=== PATIENT | female | born 1950 | race Caucasian/White ===

== ENCOUNTER 2017-09-02 13:37 | Inpatient (IN) | payer MEDICARE ==
[2017-09-02 14:00] LABS: #Basophils 0.1 thou/uL (0.0-0.2); #Lymphocytes 0.9 thou/uL (1.20-3.40); #Monocytes 0.5 thou/uL (0.11-0.59); #Neutrophils 9.5 thou/uL (1.40-6.50); %Basophils 0.6 % (0.0-1.0); %Eosinophils 0.2 % (0.0-10.0); %Lymphocytes 7.9 % (21.0-51.0); %Monocytes 4.5 % (0.0-10.0); Bilirubin Negative (Negative); Blood, Urine Trace (Negative); Glucose, Urine (Dipstick) 250 mg/dL (Negative); Hematocrit 40.8 % (36.0-47.0); Ketone, Urine Trace mg/dL (Negative); Mean Platelet Volume 7.2 fL (7.4-10.4); Nitrite Negative (Negative); Protein, Urine (Dipstick) Trace mg/dL (Neg-Trace); Red Blood Cell (RBC) Count 4.27 mill/uL (4.20-5.40); Urobilinogen 0.2 mg/dL (0.2-1.0); White Blood Cell (WBC) Count 10.9 thou/uL (4.8-10.8)
[2017-09-02 14:02] LABS: Oxyhemoglobin 97.5 % (94.0-97.0); Sodium 139 mmol/L (135-148)
[2017-09-02 14:02] LABS: Bacteria/HPF None Seen HPF (None Seen); Hyaline Casts/LPF 0-3 HYALINE CAST LPF (0-3 Hyaline); RBC/HPF 0-3 HPF (0-3); Squamous Epithelial 0-3 HPF (0-3); WBC/HPF 21-50 HPF (0-3)
[2017-09-02 14:03] LABS: Mechanical Tidal Volume 400 ml; Modified Allen's Test POSITIVE; Vent YES
[2017-09-02 14:04] LABS: Mode TRANSPORT VENT
[2017-09-02 14:14] LABS: Lactic Acid - Sepsis 2.8 mmol/L (0.5-2.2)
[2017-09-02 14:17] LABS: ALT (SGPT) 16 U/L (8-55); AST (SGOT) 26 U/L (5-34); Alkaline Phosphatase 80 U/L (40-150); Anion Gap 13 mmol/L (10-20); BUN (Urea Nitrogen) 23 mg/dL (9.8-20.1); Bilirubin, Total 0.4 mg/dL (0.2-1.2); Calc. Creatinine Clearance 0 mL/min (70-130); Calcium 8.4 mg/dL (7.8-10.44); Carbon Dioxide 20 mmol/L (23-31); Chloride 106 mmol/L (98-107); Estimated GFR-MDRD 61; Globulin 2.8 g/dL (2.4-3.5); Protein, Total 6.3 g/dL (6.0-8.3)
[2017-09-02] MEDS ORDERED: PHENYLEPHRINE-NS 100 MCG/ML 10 ML SYRINGE ONE (14:19)
[2017-09-02] MEDS ORDERED: Vecuronium 10 MG VIAL ONE (14:19)
--- NOTE | 2017-09-02 14:20 | RAD ---
PORTABLE CHEST: Date: 09/02/17 Supine projection. HISTORY: Cough. Intubation. FINDINGS: ET tube is in place with tip above dontae. NG tube is in place, tip not visualized. There is elevation of the left hemidiaphragm, which is a new finding when compared to prior study of 12/01/12. The lungs appear clear of infiltrate. No evidence of vascular congestion. Flattening of the right hemidiaphragm is a stable finding. IMPRESSION: 1. ET tube and NG tube noted. 2. Elevated left hemidiaphragm is new when compared to prior exam. POS: [facility]
[2017-09-02 14:21] LABS: Amphetamine Detected (NotDetected); Methadone Not Detected (NotDetected); Methamphetamine Detected (NotDetected)
[2017-09-02] MEDS ORDERED: Propofol 1,000 MG/100 ML VIAL IV ONE ×2 (14:45→17:46)
[2017-09-02 14:47] LABS: Acetaminophen Less than 6.0 mcg/mL (10.0-30.0); CK (CPK) 86 U/L (29-168); Lipase 15 U/L (8-78); Salicylate Less than 8.0 mg/dL (15.0-30.0)
[2017-09-02 14:50] LABS: Troponin I Less than 0.010 ng/mL (< 0.028)
[2017-09-02] MEDS ORDERED: NS 0.9% w/ 20 MEQ KCL 1,000 ML IV SCH (15:00)
[2017-09-02 15:16] LABS: PTT 32.2 SEC (22.9-36.1)
[2017-09-02] MEDS ORDERED: manNITOL 20% 500 ML ONE (15:19)
[2017-09-02 15:20] LABS: Prothrombin Time 12.9 SEC (12.0-14.7)
--- NOTE | 2017-09-02 15:27 | CT ---
CT HEAD WITHOUT CONTRAST: Date: 09/02/17 Multiple axial tomograms obtained through the head without IV enhancement. HISTORY: Found unresponsive. FINDINGS: There is a large intraparenchymal hematoma involving the posterior fossa. This is located predominant ly in the midline and measures approximately 5.0 x 6.0 cm. There is surrounding edema. There is some intraventricular extension of hemorrhage. There is associated hydrocephalus involving the lateral and third ventricles. Effacement of the basilar cisterns due to the mass effect. IMPRESSION: Large intraparenchymal hemorrhage involving the midline of the posterior fossa with secondary hydroce phalus and intraventricular extension of hemorrhage. Findings relayed to Dr. Dominguez. CODE CR. POS: [facility]
[2017-09-02] MEDS ORDERED: Bacitracin Zinc Ointment 30 gm TUBE ONE (15:28)
[2017-09-02] MEDS ORDERED: Piperacillin/Tazobactam 3.375 GM in Sodium Chloride 0.9% 100 ML IVPB SCH (15:30)
--- NOTE | 2017-09-02 15:41 | CT ---
CT CERVICAL SPINE WITHOUT IV CONTRAST: Date: 09-02-17 History: Unresponsive. Technique: Contiguous axial CT images are obtained through the cervical spine from the skull base to the T4-5 level. Sagittal and coronal reformatted images are provided. FINDINGS: There is no evidence of a fracture or subluxation involving the cervical spine. There is incomplete i maging or visualization of a wedge shaped compression fracture involving the T5 vertebral body, but t his was seen on a prior chest x-ray on 12-01-12. Prevertebral soft tissues are within normal limits. Vascular calcifications seen in the aortic arch. There is partial visualization of a large area of hemorrhage in the posterior fossa and extending int o the fourth ventricle. This is better visualized on CT of the head also obtained on this date. There are emphysematous changes seen within the upper lobes bilaterally with what is thought to be pl eural and parenchymal scarring at the medial aspect of each lung apex. Endotracheal tube is noted in place which terminates at the C4-5 level, above the level of the dontae . Just distal to the endotracheal tube, there is an essentric increased density focus seen within the trachea, probably related to a small amount of debris or secretions. Nasogastric tube is noted in place. IMPRESSION: 1. No fracture or subluxation involving the cervical spine. 2. Incomplete visualization of a prominent wedge shaped compression fracture involving the T5 vertebr al body, also seen on a prior study in 2012. 3. Endotracheal tube and nasogastric tubes in place. 4. Large hemorrhage in the posterior fossa. This was better imaged and evaluated on CT of the head, a lso obtained on this date. POS: [facility]
[2017-09-02] MEDS ORDERED: Midazolam HCl 2 mg/2 ml Vial ONE ×2 (15:42→17:16)
[2017-09-02] MEDS ORDERED: Fentanyl 250 MCG/5 ML VIAL ONE (15:42)
[2017-09-02] MEDS ORDERED: Fentanyl 100 MCG/2 ML VIAL ONE ×2 (15:42→16:38)
[2017-09-02] MEDS ORDERED: Acetaminophen 325 MG TAB PO PRN (18:16)
[2017-09-02 18:20] LABS: Oxyhemoglobin 97.2 % (94.0-97.0); Sodium 132 mmol/L (135-148)
[2017-09-02] MEDS ORDERED: Morphine 4 MG/ML VIAL SLOW IVP PRN ×2 (18:21→18:22)
[2017-09-02] MEDS ORDERED: Ondansetron HCl/PF 4 MG/2 ML Vial IVP PRN (18:22)
[2017-09-02 18:24] LABS: Mechanical Tidal Volume 325 ml; Vent YES
[2017-09-02 18:25] LABS: Mode SIMV; Pressure Support 10 cmH2O
[2017-09-02] MEDS: Sodium Chloride 0.9% 1,000 ML IV SCH (18:43)
[2017-09-02] MEDS: niCARdipine HCl 25 MG in Sodium Chloride 0.9% 250 ML 240 ML IVPB SCH ×2 (18:44→21:44)
--- NOTE | 2017-09-02 19:28 | CON ---
DATE OF CONSULTATION: 09/02/2017 Ms. Ramirez is a 67-year-old woman with hypertension, but otherwise in reasonably good health who was fo und unresponsive at home by her . Upon initial evaluation by EMS, she was reported to be movi ng all four extremities with a poor level of consciousness. Ultimately, she was intubated and sedate d. Her current exam involved moving all 4 extremities in a meaningful way at least with withdrawal. Pupils are currently pinpoint. She is overbreathing the ventilator. CT scan reveals a large cerebellar hematoma which seems to have origin of the midline near the fourth ventricle extending into both cerebellar hemispheres, left greater than right. IMPRESSION AND PLAN: The patient has a very large cerebellar hematoma causing severe mass effect and coma. Her overall prognosis is poor. Nevertheless, given the reasonably good health and young age as well as the persistent neurologic function, I recommend urgent clot evacuation and decompression a s well as ventriculostomy. I did express to her the overall poor prognosis even with surgery and he expressed understanding.
--- NOTE | 2017-09-02 20:42 | HP ---
HISTORY OF PRESENT ILLNESS: The patient is a 67-year-old female with a past medical history of hypertension, noncompliant on her medications, who was found down by her just prior to arrival to the ER. reports last seen normal 3 hours before when he left the house to get her a birthday card. It is unknown how long the patient had been down. Upon his arrival, he found her slumped over near the front door and she was not able to speak, not opening her eyes, but was moving her extremities. He called EMS who on arrival intubated the patient for protection of her airway. CT head was done upon arrival to the emergency department, which revealed large cerebellar intracranial hemorrhage and therefore, the Neurosurgery Service was consulted for further evaluation and management. PAST MEDICAL HISTORY: reports patient has a past medical history of hypertension, but she is noncompliant on her medication. SOCIAL HISTORY: History of opiate abuse. She does smoke cigarettes daily approximately 1/4 pack. Lives at home with her family. ALLERGIES: The patient has a PEANUT allergy. REVIEW OF SYSTEMS: Per HPI. PHYSICAL EXAMINATION: GENERAL: GCS is 6. The patient is not opening her eyes. No verbal response. She does withdraw to pain over all extremities. CONSTITUTIONAL: The patient is in significant distress. HEAD: Normocephalic, atraumatic. EYES: Pupils are pinpoint and nonreactive. ENT: The patient has a positive gag reflex. She is currently intubated. NECK: Trachea is midline. RESPIRATORY: She is being mechanically ventilated. Breath sounds are clear. CARDIOVASCULAR: Regular rate and rhythm. MUSCULOSKELETAL: The patient has symmetric pulses throughout all upper and lower extremities, no obvious deformities. NEUROLOGIC: The patient does have a GCS of 6, not open her eyes. She is nonverbal. She does withdraw to pain overall extremities. She has a positive gag reflex, no corneal reflexes appreciated. ASSESSMENT: Acute intracranial hemorrhage of the cerebellum. PLAN: The patient was given 100 grams of mannitol IV in the emergency department. She is also being hyperventilated. We will plan to take the patient to the OR for posterior fossa decompression. Following this, she will be admitted to the ICU for further management. EVD will also be placed intraoperatively. Dr. Ferrer is in the Emergency Department at this time in agreement with this plan. SETH
[2017-09-02] MEDS: Famotidine 20 MG TAB PO SCH (21:37)
[2017-09-02] MEDS: Famotidine/PF 20 mg/2ml Vial SLOW IVP SCH (21:44)
[2017-09-02] MEDS: CEFAZOLIN/Water 2 GM/20 ML SYRINGE SLOW IVP SCH (21:45)
[2017-09-03] MEDS: niCARdipine HCl 25 MG in Sodium Chloride 0.9% 250 ML 240 ML IVPB SCH (01:38)
--- NOTE | 2017-09-03 01:44 | OP ---
DATE OF PROCEDURE: 09/02/2017 SURGEON: Mehrdad Ferrer M.D. OPERATING SYSTEMS SPECIALIST: Francisco Javier Rod PA-C PROCEDURE PERFORMED: Right frontal ventriculostomy, suboccipital craniectomy, evacuation of cerebell ar hematoma. PROCEDURE IN DETAIL: The patient was brought into the operating room, having already been intubated. The right frontal region was shaved, prepped, and draped in sterile fashion and a twist drill perfo ration was made in a single pass. Brisk CSF flow was obtained through a ventriculostomy catheter thr ough the right frontal region. This was tunneled through a separate incision and secured with suture and connected to a drainage system. The patient was then placed in the thanh packager head and hunter d in the prone position on gel-filled chest rolls with the head fixed in a neutral position. A midli ne incision was made, exposing the suboccipital cranium down to C1. A standard suboccipital craniect luna was performed. The dura was then reflected. We made a corticotomy in the left cerebellar hemisp here extending to the midline vermis. Rlaph hematoma was identified and aspirated and a complete alejandro cuation of the hematoma was achieved. The brain seemed adequately decompressed. After immaculate he mostasis was secured, the wound was extensively irrigated. The dura was re-approximated using DuraGe n artificial dura. Vancomycin powder was applied and the wound was then closed in anatomic layers.
[2017-09-03] MEDS: Labetalol HCl 100 MG/20 ML VIAL SLOW IVP PRN (03:17)
[2017-09-03] MEDS: niCARdipine HCl 50 MG in Sodium Chloride 0.9% 250 ML 230 ML IVPB SCH ×5 (03:17→21:09)
--- NOTE | 2017-09-03 03:47 | CON ---
DATE OF CONSULTATION: 09/02/2017 SERVICE: Pulmonary Medicine. REASON FOR CONSULTATION: Respiratory failure. HISTORY OF PRESENT ILLNESS: The patient is a 67-year-old white female with past medical history sign ificant for hypertension. She presented to the hospital with acute onset of neurologic changes. In the emergency department, CT scan was done demonstrating some posterior fossa bleed. Because of her neurologic symptoms, she went for craniectomy. She is tucked into the ICU after this procedure. At this point, she is not requiring any sedation. Her blood pressures are under much better control. S he cannot provide any additional elements of the history. PHYSICAL EXAMINATION: VITAL SIGNS: Afebrile, pulse 79, blood pressure 153/96, respirations 12, saturation 100% on 31% FIO2 and a PEEP of 5. GENERAL: Patient is intubated. She is a little encephalopathic. HEENT: Normocephalic, status post craniectomy. Sclerae white. Conjunctivae pink. Oral and nasal m ucosa is moist without lesions. LUNGS: Decent air entry with no prolonged expiratory phase or wheezing. HEART: Normal rate, regular. ABDOMEN: Soft, nontender, nondistended. Bowel sounds positive. MUSCULOSKELETAL: No cyanosis or clubbing. No pitting in the bilateral lower extremities. NEUROLOGIC: Pupils are equal, round, and reactive. They go from 3 mm to 1 mm with light. Doll's ey es are normal. She is overbreathing the ventilator and demonstrates a good cough and gag. She seems to have some type of movement in the bilateral upper extremities with noxious stimuli. It is someth ing between withdrawal and posturing, though I favor the former. Additionally, she withdraws from he r left lower extremity. With noxious stimuli to her right lower extremity, she seems to have some so rt of a crossed extensor reflex. LABORATORY DATA: WBC 10.9, hemoglobin 13.7, platelets 190,000. PH 7.26, pCO2 of 49, pO2 of 150 on 4 0% FiO2 at that time. Potassium 2.9. Otherwise, basic metabolic profile, liver function studies are unremarkable. Lipase, troponins are unremarkable. CK is normal as ammonia. Urinalysis is essentia lly unremarkable except for mild glycosuria. Amphetamines are present in the urine drug screen. All other drugs are unremarkable. IMAGIN. CT of the brain demonstrates posterior fossa bleeding resulting in hydrocephalus and intraventric ular extension of the hemorrhage. 2. CT of the C-spine demonstrates no acute osseous abnormality or subluxation. Endotracheal tube an d nasogastric tube are both identified. 3. Chest x-ray demonstrates endotracheal tube at roughly 4 to 6 cm above the level of the dontae. E nteric catheter course as well below the level of the diaphragm. There is no acute cardiopulmonary a bnormality, but there is a high left-sided hemidiaphragm. ASSESSMENT: 1. Respiratory failure secondary to inability to protect airway. 2. Intraparenchymal hemorrhage of the posterior fossa with intraventricular extension, status post c raniectomy. 3. Hypokalemia. 4. Hypertension. 5. Amphetamine abuse, possible. PLAN: We will focus on keeping her systolic blood pressure below 140. We will continue to monitor a rterial line. Multiple adjustments have been made ventilator in order to improve comfort. Hopefully , her mentation will start to improve over the next 24-48 hours. If it does, extubation will be cons idered. I will replace the potassium. CRITICAL CARE TIME: 30 minutes. PAST MEDICAL HISTORY: Hypertension. PAST SURGICAL HISTORY: Unknown. SOCIAL HISTORY: She has a history of opiate abuse. The patient's is not aware of any amphet amine use. She smokes 1/4 pack of cigarettes on a daily basis, but has a [id number] history of smo natalie prior to that. Negative for alcohol abuse. ALLERGIES: PEANUTS. MEDICATIONS: List of her inpatient medications were reviewed. A couple of small updates were made. FAMILY HISTORY: Noncontributory. REVIEW OF SYSTEMS: Cannot be obtained because the patient is encephalopathic.
[2017-09-03] MEDS: CEFAZOLIN/Water 2 GM/20 ML SYRINGE SLOW IVP SCH ×3 (05:10→21:07)
[2017-09-03] MEDS ORDERED: Propofol 1,000 MG/100 ML VIAL IV PRN (07:05)
[2017-09-03] MEDS: Famotidine 20 MG TAB PO SCH ×2 (07:22→21:10)
[2017-09-03] MEDS: Sodium Chloride 0.9% 1,000 ML IV SCH ×2 (07:25→21:08)
[2017-09-03] MEDS: Famotidine/PF 20 mg/2ml Vial SLOW IVP SCH ×2 (07:25→21:07)
--- NOTE | 2017-09-03 09:03 | CT ---
CT HEAD WITHOUT CONTRAST: Date: 09/03/17 Multiple axial tomograms obtained through the head without IV enhancement. HISTORY: Postop follow-up intracranial hemorrhage. Comparison made to yesterday's exam of 09/02/17. FINDINGS: Postop changes in the posterior fossa now noted. The posterior fossa hematoma has been evacuated. Pne umocephalus is seen. There continues to be some dense blood product in the posterior fossa, although the size of the hematoma is much less. Fourth ventricle is now identified. Some intraventricular bloo d again noted. A shunt catheter has been placed via the right frontal lobe and the tip overlies the r ight lateral ventricle. Ventricular size appears slightly decreased from yesterday. IMPRESSION: Postoperative changes are now noted. Some residual hematoma in the posterior fossa is seen, although the size of the intraparenchymal hematoma is much less after surgical evacuation. POS: [facility]
[2017-09-03] MEDS: hydrALAZINE 20 MG/ML VIAL SLOW IVP PRN (13:43)
--- NOTE | 2017-09-03 15:33 | PRG ---
DATE OF SERVICE: 09/03/2017 SERVICE: Pulmonary Medicine. INTERVAL HISTORY: The patient is doing fine from a respiratory standpoint. Mentation kirby, she is improving slightly. Otherwise, there has been no interval change to her condition. She certainly is not able to protect her airway at this point. We are holding all sedation as tolerated. PHYSICAL EXAMINATION: VITAL SIGNS: T-max of 100.2, pulse 74, blood pressure 140/54, respirations 23, saturation 100% on 31% FiO2 and PEEP of 5. HEENT: Normocephalic, atraumatic. Sclerae are white, conjunctivae pink. Oral and nasal mucosa is moist without lesions. LUNGS: Decent air entry. There is no prolonged expiratory phase, wheezing, rhonchi, or crackles. HEART: Normal rate, regular. ABDOMEN: Soft, nontender, nondistended. Bowel sounds positive. MUSCULOSKELETAL: No cyanosis or clubbing. No pitting in the bilateral lower extremities. NEUROLOGIC: She spontaneously opens her eyes. She does not attend yet. She is withdrawing from noxious stimuli in all 4 extremities. Pupils are equal, round, and reactive. She is over-breathing the ventilator and has a good cough and gag. LABORATORY DATA: Potassium 2.9. Cardiac enzymes are negative x1. CK falls within normal limits and lipase is normal. Blood cultures x2 are unremarkable. IMAGING: CT of the brain demonstrates residual hematoma in the posterior fossa. The size of the intraparenchymal hematoma is much improved after surgical evacuation. ASSESSMENT: 1. Respiratory failure secondary to inability to protect airway. 2. Intraparenchymal hemorrhage of the posterior fossa with intraventricular extension, status post craniectomy. 3. Hypokalemia, improving. 4. Amphetamine abuse, possible. PLAN: We will continue supportive care for the patient. Repeat laboratories will be done tomorrow morning. Small adjustments have been made to the ventilator in order to improve on . Critical Care will continue to follow. In 24 hours, if she cannot be extubated, tube feeds will be initiated. Critical care time: 30 minutes. MTDD
[2017-09-04] MEDS: Labetalol HCl 100 MG/20 ML VIAL SLOW IVP PRN (00:21)
[2017-09-04 04:28] LABS: Anion Gap 11 mmol/L (10-20); BUN (Urea Nitrogen) 15 mg/dL (9.8-20.1); Calc. Creatinine Clearance 45 mL/min (70-130); Calcium 8.3 mg/dL (7.8-10.44); Carbon Dioxide 18 mmol/L (23-31); Chloride 114 mmol/L (98-107); Estimated GFR-MDRD 59; Magnesium 1.6 mg/dL (1.6-2.6); Phosphorus 2.9 mg/dL (2.3-4.7)
[2017-09-04 04:37] LABS: Band 4 % (5-11); Hematocrit 33.4 % (36.0-47.0); Mean Platelet Volume 7.8 fL (7.4-10.4); Neutrophil 85 % (42-75); Red Blood Cell (RBC) Count 3.51 mill/uL (4.20-5.40); White Blood Cell (WBC) Count 19.6 thou/uL (4.8-10.8)
[2017-09-04] MEDS: CEFAZOLIN/Water 2 GM/20 ML SYRINGE SLOW IVP SCH ×3 (05:10→21:22)
[2017-09-04] MEDS: niCARdipine HCl 50 MG in Sodium Chloride 0.9% 250 ML 230 ML IVPB SCH ×3 (05:12→09:08)
[2017-09-04] MEDS: Sodium Chloride 0.9% 1,000 ML IV SCH (09:07)
[2017-09-04] MEDS: Famotidine 20 MG TAB PO SCH ×2 (09:08→20:07)
[2017-09-04] MEDS: Famotidine/PF 20 mg/2ml Vial SLOW IVP SCH ×2 (09:09→20:08)
[2017-09-04] MEDS: cloNIDine 0.1 MG TAB PO PRN (14:38)
[2017-09-04] MEDS ORDERED: Lacri-Lube Opth Oint 3.5 GM TUBE EA EYE PRN (15:22)
[2017-09-04] MEDS ORDERED: Magnesium 2 GM/NS 0.9% 100 ML 2 GM in Premix Bag 1 BAG IVPB SCH (15:30)
[2017-09-04] MEDS ORDERED: predniSONE 20 MG TAB PO SCH (15:30)
--- NOTE | 2017-09-04 15:50 | PRG ---
DATE OF SERVICE: 09/04/2017 SERVICE: Pulmonary Medicine. INTERVAL HISTORY: The patient is doing great from a respiratory standpoint. Overnight, started foll owing some simple commands. She does not have any specific complaints presently. That being said, h er mentation is only marginally improved and she remains fairly encephalopathic. Without stimulation on no sedation, she drifts off back to sleep within 3 seconds. PHYSICAL EXAMINATION: VITAL SIGNS: T-max 100.5. Pulse 80, blood pressure 127/52, respirations 23, and saturation 93% on r oom air. GENERAL: The patient is intubated. She is encephalopathic and following some simple commands with h eavy stimulation. HEENT: Normocephalic. Sclerae are white, conjunctivae pink. Oral and nasal mucosa is moist without lesions. LUNGS: Decent air entry. Rhonchi and wheezing are both present. HEART: Normal rate, regular. ABDOMEN: Soft, nontender, nondistended. Bowel sounds are positive. MUSCULOSKELETAL: No cyanosis or clubbing. There is no pitting in the bilateral lower extremities. NEUROLOGIC: Grossly nonfocal. LABORATORY DATA: WBC is trending upward to 19.6, hemoglobin 11.4. Platelets are 206,000. Neutrophi l count is increasing to 85%. INR 1.0. Potassium 3.2, chloride 114, bicarbonate 18. Basic metaboli c profile is otherwise unremarkable. Magnesium and phosphorus fall within the normal limits. Tropon in is below the assay limits of normal. Blood culture x2, urine culture negative to date. IMAGING: CT of the brain demonstrates postoperative changes are stable. Some residual hematoma in t he posterior fossa seen. The size of the intraparenchymal hematoma is much less after the evacuation . ASSESSMENT: 1. Respiratory failure secondary to inability to protect airway. 2. Sepsis. 3. Intraparenchymal hemorrhage of the posterior fossa with intraventricular extension, status post c raniectomy. 4. Hypokalemia. 5. Amphetamine abuse. PLAN: We are going to look for source of infection empirically initiate antibiotics for the time carmel francisco. I will repeat a chest x-ray tomorrow morning. I have changed her to pressure support ventilatio n at 10/5. Propofol will be discontinued altogether. She will need to be placed back on mechanical ventilation if we introduce any sedating medications. We are going to initiate tube feeds and start nebulized medications as well as p.o. prednisone and she does have significant wheezing. I will cont inue to follow. Potassium and magnesium will be replaced today. Critical care time: 30 minutes.
[2017-09-04] MEDS: Lactated Ringer's 1,000 ML IV SCH (16:13)
[2017-09-04] MEDS: Piperacillin/Tazobactam 3.375 GM in Sodium Chloride 0.9% 100 ML IVPB SCH (17:39)
[2017-09-05] MEDS: Piperacillin/Tazobactam 3.375 GM in Sodium Chloride 0.9% 100 ML IVPB SCH ×5 (00:10→23:35)
[2017-09-05] MEDS: Lactated Ringer's 1,000 ML IV SCH ×2 (00:10→14:52)
[2017-09-05] MEDS: CEFAZOLIN/Water 2 GM/20 ML SYRINGE SLOW IVP SCH ×3 (05:01→21:02)
[2017-09-05 05:07] LABS: Anion Gap 8 mmol/L (10-20); BUN (Urea Nitrogen) 25 mg/dL (9.8-20.1); Calc. Creatinine Clearance 46 mL/min (70-130); Calcium 8.6 mg/dL (7.8-10.44); Carbon Dioxide 21 mmol/L (23-31); Chloride 114 mmol/L (98-107); Estimated GFR-MDRD 56
[2017-09-05 05:19] LABS: Band 6 % (5-11); Hematocrit 31.1 % (36.0-47.0); Mean Platelet Volume 7.9 fL (7.4-10.4); Neutrophil 85 % (42-75); Red Blood Cell (RBC) Count 3.27 mill/uL (4.20-5.40)
[2017-09-05] MEDS: Famotidine 20 MG TAB PO SCH (07:34)
[2017-09-05] MEDS: predniSONE 20 MG TAB PO SCH (07:34)
[2017-09-05] MEDS: Famotidine/PF 20 mg/2ml Vial SLOW IVP SCH (07:35)
--- NOTE | 2017-09-05 08:09 | CT ---
PRELIMINARY REPORT/[facility]/EMERGENCY AFTER HOURS PROCEDURE: EXAM: CT Head Without Intravenous Contrast CLINICAL HISTORY: 67 years old, female; Hemorrhage; Prior surgery; F/u known bleed / ICH TECHNIQUE: Axial computed tomography images of the head/brain without intravenous contrast. COMPARISON: CT Brain WO Con 2017-09-03 08:24 FINDINGS: Brain: Compared to the prior examination dated 09/03/2017, no significant interval change in amount o f hemorrhage within the ventricular system or cerebellum. No new areas of hemorrhage are identified. No significant white matter disease. Ventricles: See above. Bones/joints: Prior occipital craniotomy. Compared to the prior examination dated 09/03/2017, interva l decrease in amount of intracranial postsurgical air. No acute fracture. Soft tissues: Unremarkable. Sinuses: Unremarkable as visualized. No acute sinusitis. Mastoid air cells: Unremarkable as visualized. No mastoid effusion. Tubes, lines and devices: Tip of intracranial catheter is located within the body of the right latera l ventricle. IMPRESSION: 1. Prior occipital craniotomy. Compared to the prior examination dated 09/03/2017, interval decrease in amount of intracranial postsurgical air. 2. Compared to the prior examination dated 09/03/2017, no significant interval change in amount of he morrhage within the ventricular system or cerebellum. No new areas of hemorrhage are identified. Thank you for allowing us to participate in the care of your patient. Dictated and Authenticated by: Aiden Vargas MD 09/05/2017 3:57 AM Central Time ([place] & [place]) FINAL REPORT HEAD CT WITHOUT CONTRAST: Date: 09/05/17 COMPARISON: 09/03/17. HISTORY: Re-evaluate intracranial hemorrhage and postoperative changes. FINDINGS: Imaged paranasal sinuses and mastoid air cells are well aerated. There is evidence of prior midline o ccipital craniectomy. There is intraventricular gas within the frontal horn of right lateral ventricl e and temporal horn of left lateral ventricle. There is pneumocephalus noted, with punctate foci of g as in the posterior fossa and anterior bilateral frontal lobes. The degree of pneumocephalus has decr eased since the prior exam. There is blood layering within the posterior horns of bilateral lateral ventricles, similar when comp ared to prior imaging. There is intraventricular blood within the third and fourth ventricle, grossly unchanged as well. There is a right frontal ventriculostomy, in stable position. There is mild prominence of the lateral ventricles, slightly improved since the prior exam. Hemorrhag e centered within the left cerebellar hemisphere measures up to 3.4 cm in transverse dimension, not s ignificantly changed. Mass effect on the fourth ventricle is stable. IMPRESSION: Stable postoperative changes with decreased amount of intracranial postsurgical gas. Intraventricular blood and intra-axial blood within the left cerebellar hemisphere does not appear significantly islas ged. POS: [facility]
--- NOTE | 2017-09-05 09:14 | RAD ---
CHEST 1 VIEW: Date: 09/05/17 HISTORY: Dyspnea. Fever. COMPARISON: 09/02/17. FINDINGS: Cardiac silhouette is magnified by projection. Pulmonary vasculature is upper limits of normal. Lungs remain hyperinflated. Bibasilar atelectasis has increased slightly. Tip of the endotracheal catheter is just above the level of the dontae. Nasogastric tube descends to the abdomen. pharmaceutical representative leads overlie the chest. IMPRESSION: Slight interval increase in bibasilar atelectasis. Otherwise stable radiographic appearance of the ch est. POS: [facility]
[2017-09-05] MEDS: cloNIDine 0.1 MG TAB PO PRN (13:05)
[2017-09-05] MEDS: Labetalol HCl 100 MG/20 ML VIAL SLOW IVP PRN (14:52)
[2017-09-05] MEDS ORDERED: Potassium Chloride 40 MEQ in Sodium Chloride 0.9% 250 ML 250 ML IVPB ONE (20:30)
--- NOTE | 2017-09-05 22:41 | PRG ---
DATE OF SERVICE: 09/05/2017 SERVICE: Pulmonary Medicine. INTERVAL HISTORY: The patient is doing fine from a cardiovascular and respiratory standpoint. She is breathing comfortably. Today, she is awake and alert. She is following all commands. She is moving her bilateral upper and lower extremities. She can lift her head up off the bed and demonstrates a fairly good cough, otherwise. She remains on mechanical ventilation. She has been off sedation basically continuously. PHYSICAL EXAMINATION: VITAL SIGNS: Afebrile with a T-max of 99.4 presently. Temperature profile has improved, otherwise. Heart rate 78, blood pressure 133/70, respirations 20, saturation 98% on 21% FIO2, and PEEP of 5. GENERAL: Patient is awake and alert. She is following all commands, in no apparent distress. HEENT: Normocephalic. Status post craniectomy. Sclerae are white, conjunctivae pink. Oral and nasal mucosa is moist without lesions. LUNGS: Decent air entry. There is no prolonged expiratory phase or wheezing. She has rhonchi that clear with cough. HEART: Normal rate, regular. ABDOMEN: Soft, nontender, nondistended. Bowel sounds positive. MUSCULOSKELETAL: No cyanosis or clubbing. There is trace to 1+ pitting in the bilateral upper and lower extremities. GENITOURINARY: Ivey catheter in place. NEUROLOGIC: She is moving all 4 extremities. She demonstrates fairly decent strength. Pupils are equal, round, and active. She has a very good cough. LABORATORY DATA: WBC 20.0 with a slightly increasing band count. Neutrophils are 91%. Hemoglobin 10.5, platelets 221,000. INR 1.0. Potassium 3.5. Bicarbonate and anion gap have returned to a normal range. Creatinine 1.0 and gently up trending. Glucose 155. Respiratory culture, blood culture x2, and urine culture are all negative to date. IMAGIN. Chest x-ray demonstrates slight interval increase in bibasilar atelectasis with otherwise stable radiographic appearance of the chest including line and endotracheal tube. 2. CT of the brain demonstrates interval improvement in the volume of air in the intracranial area. There is no significant change in the amount of blood in the posterior fossa. ASSESSMENT: 1. Respiratory failure secondary to inability to protect airway, improving. 2. Sepsis. 3. Intraparenchymal hemorrhage of the posterior fossa with intraventricular extension, status post craniectomy. 4. Hypokalemia, improving. 5. Amphetamine abuse, possible. PLAN: We will continue empiric antibiotics directed at lung pathology for the time being. We will put her on a spontaneous breathing trial of 02/07. If she meets criteria, and demonstrates a vigorous cough and that she could probably handle her secretions, extubation will be considered. We will have to focus on pulmonary toileting after an extubation. Potassium will be replaced once again. CRITICAL CARE TIME: 30 minutes. MTDD
[2017-09-05] MEDS: hydrALAZINE 20 MG/ML VIAL SLOW IVP PRN (23:35)
[2017-09-06] MEDS: Labetalol HCl 100 MG/20 ML VIAL SLOW IVP PRN ×3 (02:12→21:48)
[2017-09-06 06:13] LABS: Anion Gap 15 mmol/L (10-20); BUN (Urea Nitrogen) 21 mg/dL (9.8-20.1); Calc. Creatinine Clearance 54 mL/min (70-130); Calcium 9.2 mg/dL (7.8-10.44); Carbon Dioxide 19 mmol/L (23-31); Chloride 110 mmol/L (98-107); Estimated GFR-MDRD 67
[2017-09-06] MEDS: Piperacillin/Tazobactam 3.375 GM in Sodium Chloride 0.9% 100 ML IVPB SCH ×3 (06:19→17:28)
[2017-09-06] MEDS: CEFAZOLIN/Water 2 GM/20 ML SYRINGE SLOW IVP SCH (06:19)
[2017-09-06] MEDS: hydrALAZINE 20 MG/ML VIAL SLOW IVP PRN ×4 (06:29→23:08)
[2017-09-06 08:17] LABS: Hematocrit 34.7 % (36.0-47.0); Mean Platelet Volume 7.4 fL (7.4-10.4); Red Blood Cell (RBC) Count 3.66 mill/uL (4.20-5.40)
[2017-09-06 08:19] LABS: Neutrophil 90 % (42-75)
--- NOTE | 2017-09-06 10:52 | PRG ---
DATE OF SERVICE: 09/06/2017 SUBJECTIVE: Ms. Ramirez is doing well post-extubation. Her drains have been removed. PHYSICAL EXAMINATION: VITAL SIGNS: Heart rate is 85, blood pressure 144/88, respiratory rate in the 20s. GENERAL: She will take a deep breath to commands, for examination and will say yes and no, but other than that she is minimally verbal. LUNGS: Completely clear. HEART: Regular rhythm. ABDOMEN: Soft. She appears to be handling her secretions. LABORATORY DATA: White counts 19, hemoglobin is 11, platelets 269. Sodium 140, potassium 4.1, chlor ren 110, bicarbonate 19, anion gap is 11, BUN 21, creatinine 0.8. Cultures have been reviewed and ar e negative so far. IMPRESSION: 1. Status post mechanical ventilation for a brain hemorrhage 2. Street drug abuse. 3. Mild hyperchloremic acidosis. 4. Anemia with normal mean corpuscular volume, presumably secondary to blood loss, her hemoglobin wa s 13 on admission. PLAN: Continue supportive care.
[2017-09-06] MEDS: predniSONE 20 MG TAB PO SCH (14:15)
[2017-09-06] MEDS: Lactated Ringer's 1,000 ML IV SCH (14:15)
[2017-09-06] MEDS: Acetaminophen 650 MG Suppository PR PRN (21:36)
[2017-09-07] MEDS: Piperacillin/Tazobactam 3.375 GM in Sodium Chloride 0.9% 100 ML IVPB SCH ×5 (00:35→23:49)
[2017-09-07] MEDS: hydrALAZINE 20 MG/ML VIAL SLOW IVP PRN ×2 (03:22→04:40)
[2017-09-07 03:39] LABS: #Lymphocytes 1.3 thou/uL (1.20-3.40); #Monocytes 0.7 thou/uL (0.11-0.59); #Neutrophils 9.7 thou/uL (1.40-6.50); %Basophils 0.2 % (0.0-1.0); %Eosinophils 0.3 % (0.0-10.0); %Lymphocytes 10.7 % (21.0-51.0); %Monocytes 5.6 % (0.0-10.0); Hematocrit 35.5 % (36.0-47.0); Mean Platelet Volume 7.2 fL (7.4-10.4); Red Blood Cell (RBC) Count 3.74 mill/uL (4.20-5.40); White Blood Cell (WBC) Count 11.7 thou/uL (4.8-10.8)
[2017-09-07 03:58] LABS: Anion Gap 15 mmol/L (10-20); BUN (Urea Nitrogen) 21 mg/dL (9.8-20.1); Calc. Creatinine Clearance 56 mL/min (70-130); Calcium 9.1 mg/dL (7.8-10.44); Carbon Dioxide 24 mmol/L (23-31); Chloride 103 mmol/L (98-107); Estimated GFR-MDRD 70
[2017-09-07] MEDS: Lactated Ringer's 1,000 ML IV SCH (04:49)
[2017-09-07] MEDS: Acetaminophen 650 MG Suppository PR PRN (05:09)
[2017-09-07] MEDS: niCARdipine HCl 50 MG in Sodium Chloride 0.9% 250 ML 230 ML IVPB SCH (05:35)
[2017-09-07] MEDS: predniSONE 20 MG TAB PO SCH (12:19)
--- NOTE | 2017-09-07 12:39 | CON ---
DATE OF CONSULTATION: 09/07/2017 HISTORY OF PRESENT ILLNESS: Patient is a 67-year-old female, who was found down by a famil y member. She was evaluated and diagnosed with an acute intracranial hemorrhage of the cerebellum. PAST MEDICAL HISTORY: Significant for hypertension. PAST SURGICAL HISTORY: Includes right frontal ventriculostomy, suboccipital craniectomy, and evacuat ion of a cerebellar hematoma, hysterectomy. ALLERGIES: PEANUTS and TRAMADOL. HOME MEDICATIONS ON ADMISSION: Unknown. SOCIAL HISTORY/FAMILY HISTORY/REVIEW OF SYSTEMS: Unobtainable. PHYSICAL EXAMINATION: GENERAL: Shows an obtunded white female in no acute distress. VITAL SIGNS: Pulse is 96, blood pressure 155/81, respiratory rate 24, temperature is 97.7. HEENT: Significant for surgical changes in the frontal scalp. NECK: Supple. CHEST: Clear. CARDIOVASCULAR: Regular rate and rhythm. ABDOMEN: Soft, nontender, without organomegaly or masses. She has a well-healed surgical scar in th e lower abdomen. EXTREMITIES: Normal. LABORATORY: Shows a white blood cell count of 11.7, hemoglobin 11.9. Chemistries show a potassium o f 3.0 and BUN 21. ASSESSMENT: 1. Cerebellar intracranial hemorrhage. 2. Oropharyngeal dysphagia secondary to #1. RECOMMENDATIONS: EGD and PEG.
--- NOTE | 2017-09-07 12:52 | RAD ---
KUB: HISTORY: Dobbhoff tube placement. FINDINGS: A Dobbhoff feeding tube is seen. The tip of the tube is in the region of the 1st portion of the duod enum. IMPRESSION: Dobbhoff feeding tube in position. The tip is probably in the region of the 1st portion of the duode num. POS: [facility]
[2017-09-07] MEDS ORDERED: Propofol 200 MG/20 ML VIAL ONE (15:37)
[2017-09-07] MEDS ORDERED: Lidocaine 1% PF 5 ML VIAL ONE (15:37)
--- NOTE | 2017-09-07 16:51 | OP ---
PREOPERATIVE DIAGNOSIS: Oropharyngeal dysphagia. PROCEDURE: After informed consent was obtained, the patient was placed in the left lateral decubitus position. Anesthesia administered per the Anesthesia Department. Forward-viewing endoscope was ins erted into the esophagus under direct visualization with ease and passed to the second portion of the duodenum with ease. No mucosal abnormalities were noted other than duodenitis. Area was prepped an d draped in usual manner. Anesthesia was applied with 1% lidocaine without epinephrine. A needle wa s inserted through the abdominal wall on the first pass, a guide wire was passed, snared, and brought out of the mouth. The PEG tube was attached and brought through the abdominal wall after a small in cision was made. Reinsertion of the endoscope showed the PEG bumper to be in good position. ASSESSMENT: Successful percutaneous endoscopic gastrostomy. RECOMMENDATIONS: 1. Begin tube feedings in 8 hours.
--- NOTE | 2017-09-07 20:54 | PRG ---
DATE OF SERVICE: 09/07/2017 Ms. Ramirez is clinically unchanged. Dr. Ferrer saw her today and recommended placement of a PEG, I placed an order for a Dobbhoff tube but agree correction PEG tube will be necessary and beneficial. This has been done late this afternoo n. OBJECTIVE: LUNGS: Clear. HEART: Regular rhythm. ABDOMEN: Soft. IMPRESSION: Status post parenchymal brain hemorrhage. Electrolytes are stable. Her CBC is stable. Hemoglobin is 11.9. We will continue supportive care.
[2017-09-07] MEDS: cloNIDine 0.1 MG TAB PO PRN (23:49)
[2017-09-08 05:07] LABS: #Monocytes 0.5 thou/uL (0.11-0.59); #Neutrophils 7.9 thou/uL (1.40-6.50); %Basophils 0.1 % (0.0-1.0); %Eosinophils 0.2 % (0.0-10.0); %Lymphocytes 10.8 % (21.0-51.0); %Monocytes 5.5 % (0.0-10.0); Hematocrit 34.9 % (36.0-47.0); Mean Platelet Volume 7.8 fL (7.4-10.4); Red Blood Cell (RBC) Count 3.67 mill/uL (4.20-5.40); White Blood Cell (WBC) Count 9.4 thou/uL (4.8-10.8)
[2017-09-08 05:15] LABS: Anion Gap 15 mmol/L (10-20); BUN (Urea Nitrogen) 26 mg/dL (9.8-20.1); Calc. Creatinine Clearance 44 mL/min (70-130); Calcium 8.7 mg/dL (7.8-10.44); Carbon Dioxide 24 mmol/L (23-31); Chloride 104 mmol/L (98-107); Estimated GFR-MDRD 56
[2017-09-08] MEDS: Piperacillin/Tazobactam 3.375 GM in Sodium Chloride 0.9% 100 ML IVPB SCH ×4 (05:20→23:41)
[2017-09-08] MEDS: Lactated Ringer's 1,000 ML IV SCH (05:20)
[2017-09-08] MEDS: cloNIDine 0.1 MG TAB PO PRN ×2 (05:21→11:03)
[2017-09-08] MEDS ORDERED: Potassium Chloride 40 MEQ in Sodium Chloride 0.9% 250 ML 250 ML IVPB SCH ×2 (06:30→07:00)
[2017-09-08] MEDS: predniSONE 20 MG TAB PO SCH (08:58)
[2017-09-08] MEDS: Pantoprazole 40 MG VIAL IVP SCH (08:58)
[2017-09-08] MEDS ORDERED: Lactated Ringer's 1,000 ML IV SCH (11:54)
[2017-09-08] MEDS ORDERED: Milk Of Magnesia 30 ML UDCUP PO SCH (12:00)
[2017-09-08] MEDS: hydrALAZINE 20 MG/ML VIAL SLOW IVP PRN ×2 (12:21→16:12)
--- NOTE | 2017-09-08 12:21 | PRG ---
DATE OF SERVICE: 09/08/2017 SERVICE: Pulmonary Medicine. INTERVAL HISTORY: The patient is doing really quite well from a respiratory standpoint. Her mentation is actually coming along. She is moving all 4 extremities. She still has difficulty moving her right upper and lower extremity that requires a little bit more prompting. Otherwise, she looks a little bit uncomfortable today. She has yet to work with physical therapy. She has not had a bowel movement since being here. PHYSICAL EXAMINATION: VITAL SIGNS: Afebrile, pulse 74, blood pressure 188/102, respirations 15, saturation 99% on room air. GENERAL: The patient is awake and alert. She is in mild distress secondary to abdominal discomfort. HEENT: Normocephalic, atraumatic. Sclerae are white, conjunctivae pink. Oral mucosa is moist without lesions. LUNGS: Decent air entry. There is no prolonged expiratory phase, wheezing, rhonchi or crackles. HEART: Normal rate, regular. ABDOMEN: Soft. Bowel sounds are hypoactive. GENITOURINARY: Ivey catheter in place. LABORATORY DATA: WBC 9.4, hemoglobin 11.6, platelets 269,000. Potassium 2.6. Basic metabolic profile is otherwise unremarkable. Creatinine is trending upward gently to 1.0. Magnesium falls within the normal limits. Sputum is growing Moraxella catarrhalis. Blood cultures x2 and urine culture negative to date. ASSESSMENT: 1. Respiratory failure secondary to inability to protect airway, resolved. 2. Sepsis. 3. Intraparenchymal hemorrhage of the posterior fossa with intraventricular extension, status post craniectomy. 4. Hypokalemia, recurring. 5. Possible amphetamine abuse. PLAN: We will continue her antibiotics and nebulized medications. Physiotherapy will be continued. I will have Physical Therapy come by. We will give her bowel regimen, replace potassium and give her some blood pressure medications. Of note, Pulmonary will continue to follow while she remains in the ICU, but from my perspective, she is getting to the point where she can be considered for transition to the floor. SETH
--- NOTE | 2017-09-08 13:01 | PRG ---
DATE OF SERVICE: 09/08/2017 SUBJECTIVE: According to nursing personnel they are not having any problems with the PEG tube. OBJECTIVE: VITAL SIGNS: Pulse is 75, respiratory rate is 21, blood pressure 156/98, temperature is 97.8. CHEST: Clear. CARDIOVASCULAR: Regular rate and rhythm. ABDOMEN: Shows the PEG site to look good. There is no erythema or exudate. The bumper was adjusted and the pressure taken off the skin. LABORATORY DATA: Shows a white blood cell count 9.4, hemoglobin 11.6, hematocrit 34.9. Chemistries show potassium 2.6, BUN 26. ASSESSMENT: 1. Status post percutaneous endoscopic gastrostomy placement - no apparent complications. 2. Hypokalemia. 3. Intracranial hemorrhage. RECOMMENDATIONS: 1. Continue PEG tube feedings. 2. Call if any difficulty with the PEG tube.
[2017-09-08 14:39] VITALS: BMI 20.6
[2017-09-08] MEDS ORDERED: Senokot S 8.6-50 MG TAB PO SCH (21:00)
[2017-09-09] MEDS: cloNIDine 0.1 MG TAB PO PRN ×3 (02:07→16:13)
--- NOTE | 2017-09-09 02:57 | CON ---
DATE OF CONSULTATION: 09/08/2017 DATE OF INITIAL ADMISSION: 09/02/2017 PRIMARY CARE PHYSICIAN: Chu Eid PRIMARY SERVICE ATTENDING: Mehrdad Ferrer MD with Neurosurgical Service REASON FOR CONSULT: General medical management. HISTORY OF PRESENT ILLNESS: This is a 67-year-old female who initially presented on 2016 after being found down by her reportedly, last seen normal 3 hours prior to his leaving the home. The patient apparently had her birthday on 09/02/2015 at which point, the left to get her a gift or a birthday card. The returned home and found her down on the ground u nresponsive. The patient was not able to speak, open eyes, or moving any extremities, at which point , EMS personnel were notified, immediately upon arrival, intubating the patient for airway protection . The patient underwent initial emergency room evaluation with CT imaging showing a large hemorrhage in the cerebellar region with intraventricular extension. The patient underwent subsequent craniect luna with decompression of the hematoma with placement of an EVD. The patient was continually monitor ed in the critical care unit postoperatively on mechanical ventilation followed by Pulmonary Critical Care Service as well as the GI Service as patient was unable to pass her swallowing evaluation. The patient was subsequently extubated and evaluated by speech therapy and deemed unsafe for oral intake . The patient underwent PEG tube placement on 09/07/2017, initiated on Jevity tube feeds. History h as been obtained exclusively after review of electronic medical record reports, ER records as patient have expressive aphasia. PAST MEDICAL HISTORY: 1. Hypertension, poorly controlled due to noncompliance. 2. Question of opiate abuse. 3. Question of amphetamine abuse. 4. Tobacco abuse. PAST SURGICAL HISTORY: 1. Status post craniectomy with evacuation of hematoma on 09/02/2017. 2. Status post appendectomy. 3. Status post right inguinal hernia repair. 4. Status post hysterectomy. 5. Status post tonsillectomy. 6. History of nasal surgery for deviated septum. CURRENT MEDICATIONS: Unobtainable as an outpatient. ALLERGIES: PENICILLIN, SULFA, KEFLEX, and MORPHINE. FAMILY HISTORY: Positive for hypertension. SOCIAL HISTORY: Patient smokes up to a half a pack of cigarettes daily greater than 30 years. No al cohol intake. , residing in [place], [place]. One child is . Formerly worked as a skin care technician, currently retired. Positive for methamphetamines on urine drug screen. REVIEW OF SYSTEMS: Unobtainable as patient has expressive aphasia. PHYSICAL EXAMINATION: VITAL SIGNS: Currently, blood pressure 143/87, pulse 82, respiratory rate 13, temperature 98.2 degre es Fahrenheit, O2 saturation 99% on 2 liters per minute by nasal cannula. GENERAL APPEARANCE: This is a 67-year-old female, opens eyes to name and nods to direct qu estions. Aphasic. HEENT: Post-surgical changes noted on the cranium consistent with craniectomy. Pupils are equal, ro und, and reactive to light and accommodation. Extraocular muscles are intact. No scleral icterus. No conjunctival injection. Nares patent. OP is clear. NECK: Supple. No cervical adenopathy, no thyromegaly, no carotid bruits, no JVD appreciated. Cervi myranda spine with full active and passive range of motion. CHEST: Lungs are clear to auscultation bilaterally. CARDIOVASCULAR: S1, S2 with distant heart sounds. ABDOMEN: Rounded, soft with mild tenderness to palpation in the peripheral of the PEG tube insertion site. PEG tube in place without drainage. Bowel sounds are positive in all four quadrants. No pal pable mass. EXTREMITIES: Warm and dry with fair turgor. No clubbing, cyanosis, or asymmetric edema appreciated. Pulses palpable distally at the dorsalis pedis, posterior tibial, and popliteal arteries bilaterall y. Capillary refill less than 2 seconds. NEUROLOGIC: Expressive aphasia. Right hemiparesis. Opens eyes and nods to questions. Not observed ambulatory during this exam. GENITOURINARY: A Ivey catheter in place with clear urine. PERTINENT LABORATORY AND X-RAY FINDINGS: Sodium 140, potassium 3.2, chloride 114. Carbon dioxide is 18, BUN 15, creatinine 0.95. Estimated GFR 59, glucose 143. Lactic acid level 1, initially 2.8, ca lcium 8.3, phosphorus 2.9, magnesium 1.6. Serum ammonia level 23, lipase 15. CBC showed a white blo od cell count ranging between 9.4-20.0. Hemoglobin ranged between 10.5-13.7, platelet count ranged b etween 190-269. Urine drug screen positive for amphetamines/methamphetamines. Plasma alcohol level less than 10. Blood cultures x2 from 09/02/2017 showed no growth at 5 days. Urine culture dated showed no growth at 48 hours. Sputum culture dated 09/04/2017, positive for Moraxella catarr halis. Abdominal radiograph dated 09/07/2017, showed a Dobbhoff feeding tube in position. Portable chest x-ray dated 09/05/2017 showed interval increase in bibasilar atelectasis. CT of the brain date d 09/05/2017 showed stable postoperative changes with decreased amount of intracranial post-surgical gas. Intraventricular blood and intraaxial blood within the left cerebellar hemisphere. EKG dated 11/02/2016 by my interpretation shows sinus mechanism with heart rates in the 60s. Normal R-wave prog ression noted in the precordial leads. Normal axis. No acute ST-T wave changes appreciated. ASSESSMENT AND PLAN: 1. Acute intracranial hemorrhage, status post right frontal ventriculostomy, suboccipital craniectom y and evacuation of cerebellar hematoma. Continue management per neurosurgical service. Postoperati ve day #6. 2. Acute respiratory failure secondary to #1. 3. Status post mechanical ventilation and current extubation. Continue general pulmonary supportive measures. 4. Methamphetamine abuse. Continue supportive measures. We will offer cessation and resources on a n outpatient basis after discharge. 5. Tobacco abuse. We will offer smoking cessation resources prior to discharge. 6. Expressive aphasia/right hemiparesis secondary to #1. Continue general stroke protocol with alli , physical, and occupational therapy. The patient will need evaluation for inpatient rehabilitatio n on discharge. 7. Dysphagia secondary to #1. 8. Status post PEG tube placement on 09/07/2017. Continue Jevity 1.2 at 40 mL per hour. 9. Hypokalemia. Continue potassium chloride supplementation per electrolyte replacement protocol. 10. Prophylaxis. Sequential compression devices while in bed. Protonix 40 mg IV daily. 11. Hypertension, improved. We will continue intravenous per PEG tube therapy and monitor clinical response. 12. Code status is FULL. Surrogate medical decision maker is patient's spouse. Thank you for the consult. We will continue to follow with primary service.
[2017-09-09 05:17] LABS: Anion Gap 13 mmol/L (10-20); BUN (Urea Nitrogen) 35 mg/dL (9.8-20.1); Calc. Creatinine Clearance 37 mL/min (70-130); Calcium 8.8 mg/dL (7.8-10.44); Carbon Dioxide 25 mmol/L (23-31); Chloride 112 mmol/L (98-107); Estimated GFR-MDRD 47
[2017-09-09] MEDS: Piperacillin/Tazobactam 3.375 GM in Sodium Chloride 0.9% 100 ML IVPB SCH ×2 (05:20→13:06)
[2017-09-09] MEDS: hydrALAZINE 20 MG/ML VIAL SLOW IVP PRN ×4 (05:20→16:14)
[2017-09-09] MEDS ORDERED: Dextrose 5% in Water 1,000 ML IV SCH (06:45)
[2017-09-09] MEDS ORDERED: Potassium Chloride 40 MEQ in Sodium Chloride 0.9% 250 ML 250 ML IVPB SCH (06:45)
--- NOTE | 2017-09-09 07:13 | PRG ---
DATE OF SERVICE: 09/09/2017 SERVICE: Pulmonary Medicine. INTERVAL HISTORY: The patient is doing fine from a respiratory standpoint. She denies any current s hortness of breath or chest discomfort. She continues to have abdominal pain. She has had multiple bowel movements overnight. She has a solid component and liquid stool around that. She is extraordi narily agitated and is not aware of where she is. She looks to be a little anxious. PHYSICAL EXAMINATION: VITAL SIGNS: Afebrile, pulse 100, blood pressure 149/73, respirations 17, saturation 98% on 2 liters nasal cannula. GENERAL: The patient is awake and alert. She is in mild distress secondary to agitation. HEENT: Normocephalic, atraumatic. Sclerae are white. Conjunctivae pink. Oral and nasal mucosa is moist without lesions. LUNGS: Decent air entry. She has got rhonchorous breath sounds bilateral, but these are mild. Ther e is a prolonged expiratory phase, but I do not appreciate much in the way wheezing or crackles. HEART: Normal rate, regular. ABDOMEN: Soft, nontender, nondistended. Bowel sounds are positive. MUSCULOSKELETAL: No cyanosis or clubbing. No pitting in the bilateral lower extremities. LABORATORY: Sodium 147, potassium 3.3, creatinine 1.16. Basic metabolic profile is otherwise unrema rkable. Phosphorus was normal yesterday. Sputum is growing Moraxella catarrhalis. Blood cultures x 2 and urine cultures negative. ASSESSMENT: 1. Respiratory failure secondary to inability to protect airway, improving. 2. Sepsis. 3. Intraparenchymal hemorrhage of the posterior fossa with intraventricular extension, status post c raniectomy. 4. Hypokalemia. 5. Possible amphetamine abuse. 6. Delirium. PLAN: We will provide additional amounts of free water today to correct the sodium. Potassium will also be replaced. We will back off on the bowel regimen to touch, and we will schedule a very low do se of Haldol in the evening. She will remain in the ICU, because she is at extraordinarily high risk of decompensation giving her neurologic status and a high likelihood of recurrent aspiration disease . Aggressive physiotherapy and mobilization efforts will be pursued.
[2017-09-09] MEDS: Pantoprazole 40 MG VIAL IVP SCH (08:38)
[2017-09-09] MEDS ORDERED: Senokot S 8.6-50 MG TAB PO SCH (09:00)
--- NOTE | 2017-09-09 13:29 | ULT ---
ULTRASOUND WITH DOPPLER DUPLEX CAROTID: Date: 09/09/17 HISTORY: 67-year-old female with hypertension, intracranial hemorrhage, and CVA. TECHNIQUE: Harper scale, color flow, and spectral analysis of major arteries of neck. FINDINGS: There is soft plaque/intimal thickening in the bilateral proximal internal carotid arteries. Small fo myranda calcified plaque at origin of left internal carotid. Highest peak systolic velocities in the inte rnal carotid arteries are 80 cm/s on the right and 90 cm/s on the left. ICA/CCA ratios are 1.1 on the right and 1.3 on the left. Vertebral artery flow is antegrade bilaterally. IMPRESSION: 1. Mild, predominantly noncalcified atherosclerotic changes of bilateral proximal internal carotid a rteries. 2. No evidence of hemodynamically significant stenosis. POS: [facility]
[2017-09-09 16:14] VITALS: BP 170/100
[2017-09-09 16:27] VITALS: TEMP 98.6
--- NOTE | 2017-09-10 04:46 | DIS ---
DATE OF ADMISSION: 09/02/2017 DATE OF DISCHARGE: 09/09/2017 DISCHARGE DIAGNOSES: 1. Acute intracranial hemorrhage, status post right frontal ventriculostomy, suboccipital craniectom y and evacuation of cerebellar hematoma. 2. Status post acute respiratory failure with mechanical ventilation. 3. Methamphetamine abuse. 4. Tobacco abuse. 5. Expressive aphasia/right hemiparesis and right hemiparesis secondary to #1. 6. Dysphasia, status post PEG tube placement on 09/07/2017. 7. Hypokalemia. 8. Hypernatremia. 9. Hypertension, labile. CONSULTATIONS: Dr. Ferrer with Neurosurgical Service. Dr. Glass and Dr. Foster with Pulmonology Service. Dr. Harper with GI service. PERTINENT LABORATORY AND X-RAY FINDINGS: Potassium ranging between 2.6-4.1, creatinine ranging betwe en 0.82-1.16. Estimated GFR ranging between 47-70, magnesium 2.0, serum ammonia level 23. LFTs with in normal limits. CBC showed a white blood cell count ranging between 9.4-20.0, hemoglobin ranged be tween 10.5-13.7. PT 12.9, INR 1.0, PTT 32.2. Urine drug screen dated 09/02/2017, positive for amphe tamines and methamphetamines. Plasma alcohol level less than 10. Blood cultures x2 on 09/02/2017 sh owed no growth at 5 days. Urine culture dated 09/02/2017 showed no growth at 48 hours. Sputum cultu re dated 09/04/[address] of the brain without contrast dated 09/02/2017 showed large intraparenchymal hemorrhage involving the midline of the posterior fossa with secondary hydrocephalus and intraventricular extension of hemorrhage. CT of the cervical spine dated 7 showed no acute process. CT of the brain dated 09/03/2017 showed postoperative changes in the post erior fossa with evacuation of hematoma. Pneumocephalus noted. Intraventricular blood again noted. Shunt catheter placed via right frontal lobe with the tip overlying right lateral ventricle. Caroti d Doppler study dated 09/09/2017 showed noncalcified atherosclerotic changes, bilateral proximal inte rnal carotid arteries. No hemodynamically significant stenosis noted. HOSPITAL COURSE: Patient was admitted to the critical care unit after initially presenting found robert n aphasic, unresponsive discovered with large intraparenchymal hemorrhage in the left posterior fossa . The patient underwent emergent surgical intervention with craniectomy and evacuation of hematoma w ith EVD placement. The patient was intubated and continued on mechanical ventilation for airway prot ection. The patient continued with IV mannitol and IV Cardene for blood pressure control. Patient c ontinued with neurologic deficits, however, was able to wean off mechanical ventilation with becoming more responsive to family members and medical staff. The patient's overall right hemiparesis persis eliseo with expressive aphasia and dysphagia, undergoing evaluation by the GI service and subsequent yuliya cement of PEG tube on 09/07/2017. The patient was initiated on Jevity 1.5 at 50 mL per hour, tolerat ing without high residuals. Due to patient's constellation of symptoms and acute CVA, patient was de emed an appropriate candidate for ongoing inpatient rehabilitation. Patient has been approved for tr [facility] to [facility]. Overall, patient is currently stable and ready for d ischarge on 09/09/2017. DISCHARGE MEDICATIONS: 1. Carvedilol 12.5 mg per PEG tube b.i.d. 2. Clonidine 0.1 mg per PEG tube q.6 hours p.r.n. systolic greater than or equal to 160. 3. Haldol 0.5 mg per PEG tube at bedtime. 4. DuoNeb 3 mL nebulized q.6 hours p.r.n. FOLLOWUP: Patient will follow up with Dr. Barbara Liz at [facility]. CONDITION ON DISCHARGE: Guarded. ACTIVITY: Per inpatient rehabilitation protocol. DIET: Jevity 1.5 at 50 mL per hour. SPECIAL INSTRUCTIONS: Continue physical, occupational, and speech therapy. Local PEG tube care. SPECIAL INSTRUCTIONS: Repeat BMP and CBC on 09/10/2017. CODE STATUS: FULL. DISPOSITION: Discharged to [facility] on 09/09/2017. Total time for preparing and coordinating discharge is 34 minutes.
--- NOTE | 2017-10-07 11:35 | EKG ---
Test Reason : Blood Pressure : / mmHG Vent. Rate : 068 BPM Atrial Rate : 068 BPM P-R Int : 146 ms QRS Dur : 104 ms QT Int : 530 ms P-R-T Axes : 084 071 069 degrees QTc Int : 563 ms Normal sinus rhythm Minimal voltage criteria for LVH, may be normal variant Cannot rule out Anterior infarct , age undetermined Prolonged QT Abnormal ECG Confirmed by MAMIE HOLGUIN, ALIYAH Tovar ([id number]), newspaper editor VENKATA VIVAS ([id number]) on 10/07/2017 11:34:56 AM Referred By: Confirmed By:ALIYAH HATCH MD
== END 2017-09-09 17:45 | DRG 23 ==
LOC: ERS 13:37 → CCU 15:52 → SDC 16:03 → CCU 16:04
PROVIDERS: ADMIT Neurological Surgery; ATTEND Neurological Surgery
PROC: 009600Z Drainage of Cerebral Ventricle with Drainage Device, Open Approach (ICD-10-PCS; principal; 2017-09-02)
PROC: 5A1945Z Respiratory Ventilation, 24-96 Consecutive Hours (ICD-10-PCS; 2017-09-02)
PROC: 009C0ZZ Drainage of Cerebellum, Open Approach (ICD-10-PCS; 2017-09-02)
PROC: 0DH63UZ Insertion of Feeding Device into Stomach, Percutaneous Approach (ICD-10-PCS; 2017-09-07)
DX: I61.4 Nontraumatic intracerebral hemorrhage in cerebellum (principal); J96.00 Acute respiratory failure, unspecified whether with hypoxia or hypercapnia; A41.9 Sepsis, unspecified organism; G93.49 Other encephalopathy; R13.12 Dysphagia, oropharyngeal phase; E87.0 Hyperosmolality and hypernatremia; E87.2 Acidosis; R47.01 Aphasia; G81.91 Hemiplegia, unspecified affecting right dominant side; I10 Essential (primary) hypertension; R40.2433 Glasgow coma scale score 3-8, at hospital admission; F17.210 Nicotine dependence, cigarettes, uncomplicated; E87.6 Hypokalemia; F15.10 Other stimulant abuse, uncomplicated; Z82.49 Family history of ischemic heart disease and other diseases of the circulatory system; J44.9 Chronic obstructive pulmonary disease, unspecified; D50.0 Iron deficiency anemia secondary to blood loss (chronic)
CPT/HCPCS: 36415; 51702; 70450; 71010; 72125; 74000; 80048; 80053; 80306; 80307; 81003; 81015; 82140; 82553; 82805; 83605; 83690; 83735; 84100; 84484; 85025; 85610; 85730; 87040; 87070; 87077; 87086; 87205; 93005; 93306; 93880; 94002; 94003; 94640; 94760; 96361; 96365; 99292; A4216; C9113; G8978-GP-CN; G8979-GP-CL; G8987-GO-CM; G8988-GO-CK; G8996-GN-CN; G8997-GN-CL; J0360; J2001; J2250; J2543; J2704; J3010; J3370; J3480; J7050; J7506; J7620; J7799; S0028

== ENCOUNTER 2017-09-10 17:32 | Inpatient (IN) | payer MEDICARE ==
[~2017-09-10 17:32] MED LIST: ISOVUE-370 76%-LOCM 1 ML ONE
[2017-09-10] MEDS ORDERED: Ondansetron HCl/PF 4 MG/2 ML Vial ONE (19:11)
[2017-09-10] MEDS ORDERED: Labetalol HCl 100 MG/20 ML VIAL ONE (19:11)
[2017-09-10] MEDS ORDERED: Morphine 4 MG/ML VIAL ONE (19:11)
--- NOTE | 2017-09-10 19:17 | CT ---
EXAM: NONCONTRAST HEAD CT 09/10/17 COMPARISON: 09/05/17, 09/03/17. HISTORY: Previous hemorrhage. Status post right frontal ventriculostomy. TECHNIQUE: Noncontrast head CT is performed from skull base to skull vertex. FINDINGS: Stable occipital craniotomy defect. Stable hematoma involving the left cerebellar hemisphere, measuri ng 2.9 cm. Stable hemorrhage at the level of the cerebellar vermis. Stable hypoattenuation involving the left and right cerebellar peduncles. Redemonstration of hemorrhage in the dependent portion of barron th lateral ventricles. The size of the ventricular system has slightly increased when compared to the prior examination. There is slight dilatation of the temporal horns. There is a tract from a previou s [employer] shunt catheter. Currently, there does not appear to be catheter within the ventricular system. W ith regards to the cerebrum, cortical solis-white matter differentiation appears to be preserved. Whit e matter hypodensities due to chronic small vessel ischemic changes are noted. New areas of intracran ial hemorrhage are not appreciated. Stable calvarium. Adequate aeration of the sinuses and mastoid ai r cells. IMPRESSION: 1. Redemonstration of intracranial hemorrhage. No new intracranial hemorrhage. 2. Slight interval increase in size of ventricular system. 3. Iatrogenic changed from removal of a previous [employer] shunt catheter that was via the right fronta l approach. POS: [facility]
--- NOTE | 2017-09-10 19:26 | CT ---
EXAM: ABDOMEN CT WITH CONTRAST PELVIC CT WITH CONTRAST 09/10/17 HISTORY: Pain. COMPARISON: None. TECHNIQUE: An abdomen and pelvic CT are performed without contrast. Coronal reformatted images are submitted for interpretation. FINDINGS: ABDOMEN CT: Emphysematous and chronic changes in the lung bases. Heart size is within normal limits. No significa nt pericardial fluid. The descending thoracic aorta and abdominal aorta have a normal caliber. No per iaortic fat stranding. Intra and extrahepatic portal vein is patent. Liver, spleen, pancreas and adrenal glands have grossly normal enhancement. Symmetric enhancement of the kidneys. Bilaterally, no evidence of obstructive uropathy. No mesenteric mass, lymphadenopathy, free air or free fluid. Limited evaluation of the alimentary canal due to lack of oral contrast. Percutaneous gastric feeding tube is noted. No evidence of bowel obstruction. Ileocecal junction is unremarkable. Suggestion of a normal caliber appendix. Fecal material in a nondistended, nondilated colon. Sigmoid colon diverticu losis, without evidence of diverticulitis. PELVIC CT: Ivey catheter decompresses the urinary bladder. No pelvic mass, lymphadenopathy, free air or free fl uid. The uterus is surgically absent. There are no lytic or blastic lesions with regards to the osseous structures. IMPRESSION: 1. Limited evaluation of the abdomen and pelvis due to motion degradation. 2. No acute abnormality in the abdomen or pelvis. Additional findings as detailed above. POS: [facility]
[2017-09-10 19:39] LABS: Bilirubin Negative (Negative); Blood, Urine Negative (Negative); Glucose, Urine (Dipstick) Negative (Negative); Ketone, Urine Negative (Negative); Nitrite Negative (Negative); Protein, Urine (Dipstick) Negative (Neg-Trace); Urobilinogen 0.2 mg/dL (0.2-1.0)
[2017-09-10 19:59] LABS: #Eosinphils 0.2 thou/uL (0.0-0.7); #Lymphocytes 1.2 thou/uL (1.20-3.40); #Monocytes 0.6 thou/uL (0.11-0.59); #Neutrophils 9.7 thou/uL (1.40-6.50); %Basophils 0.1 % (0.0-1.0); %Eosinophils 1.4 % (0.0-10.0); %Monocytes 4.8 % (0.0-10.0); Hematocrit 31.1 % (36.0-47.0); Mean Platelet Volume 7.1 fL (7.4-10.4); White Blood Cell (WBC) Count 11.5 thou/uL (4.8-10.8)
[2017-09-10 20:11] LABS: Lactic Acid - Sepsis 0.6 mmol/L (0.5-2.2)
[2017-09-10 20:16] LABS: ALT (SGPT) 14 U/L (8-55); AST (SGOT) 20 U/L (5-34); Alkaline Phosphatase 69 U/L (40-150); Anion Gap 10 mmol/L (10-20); BUN (Urea Nitrogen) 21 mg/dL (9.8-20.1); Bilirubin, Total 0.4 mg/dL (0.2-1.2); CK (CPK) 51 U/L (29-168); Calc. Creatinine Clearance 0 mL/min (70-130); Carbon Dioxide 24 mmol/L (23-31); Chloride 107 mmol/L (98-107); Estimated GFR-MDRD 83; Globulin 2.6 g/dL (2.4-3.5); Lipase 48 U/L (8-78); Protein, Total 5.3 g/dL (6.0-8.3)
--- NOTE | 2017-09-10 21:38 | RAD ---
EXAM: ONE VIEW CHEST COMPARISON: 09/05/17 HISTORY: Recent CVA. Pneumonia. PEG tube. FINDINGS: Atherosclerosis of the aorta. Normal cardiac silhouette. The pulmonary vessels and hilum are normal. Costophrenic angles are clear. Hyperinflation with chronic changes. No mass. No consolidation. No pne umothorax. No osseous abnormalities. IMPRESSION: 1. Chronic changes. Atherosclerosis. No acute cardiopulmonary process. 2. When compared to the prior exam, interval removal of endotracheal and nasogastric tube. POS: [facility]
[2017-09-10] MEDS ORDERED: Acetaminophen 650 MG Suppository PR PRN (22:59)
[2017-09-10] MEDS ORDERED: Mag-Al 1200 mg/1200 mg/30 ML UDCUP PO PRN (22:59)
[2017-09-10] MEDS ORDERED: Lacri-Lube Opth Oint 3.5 GM TUBE EA EYE PRN (22:59)
[2017-09-10] MEDS ORDERED: hydrALAZINE 20 MG/ML VIAL SLOW IVP PRN (22:59)
[2017-09-10] MEDS ORDERED: Bisacodyl 5 MG TAB PO PRN (22:59)
[2017-09-10] MEDS ORDERED: Milk Of Magnesia 30 ML UDCUP PO PRN (22:59)
[2017-09-10] MEDS ORDERED: CCU Electrolyte Replacement 1 EACH IVPB ONE (22:59)
[2017-09-10] MEDS ORDERED: Ondansetron HCl/PF 4 MG/2 ML Vial IVP PRN ×2 (22:59)
[2017-09-10] MEDS ORDERED: Magnesium 2 GM/NS 0.9% 100 ML 2 GM in Premix Bag 1 BAG IVPB PRN (23:05)
[2017-09-10] MEDS ORDERED: CCU ELECTROLYTE REPLACEMENT PROTOCOL FS PRN (23:05)
[2017-09-10] MEDS ORDERED: Magnesium Oxide 400 MG TAB PO PRN ×2 (23:05)
[2017-09-10] MEDS ORDERED: Potassium Phosphate 9 MMOL in Sodium Chloride 0.9% 100 ML IVPB PRN (23:05)
[2017-09-10] MEDS ORDERED: Potassium Chloride 40 MEQ in Premix Bag 1 BAG IVPB PRN (23:05)
[2017-09-10] MEDS ORDERED: Potassium Chloride 20 MEQ TAB PO PRN (23:05)
[2017-09-10] MEDS ORDERED: Potassium Phosphate 15 MMOL in Sodium Chloride 0.9% 250 ML 250 ML IV PRN (23:05)
[2017-09-10] MEDS ORDERED: Potassium Chloride 40 MEQ in Sodium Chloride 0.9% 250 ML 250 ML IVPB PRN (23:05)
[2017-09-10] MEDS ORDERED: Potassium Phosphate 12 MMOL in Sodium Chloride 0.9% 250 ML 250 ML IV PRN (23:05)
--- NOTE | 2017-09-11 00:46 | CON ---
Kai Acosta PA-C dictating for Leo Bo MD This is a 30-minute initial patient consult in which greater than 50% of the exam was spent in counse ling and coordinating the patient's care. The remainder of the exam was spent in review of the patie nt's medical records and appropriate imaging studies. CHIEF COMPLAINT: Altered mental status status post suboccipital craniotomy for cerebellar hemorrhage . HISTORY OF PRESENT ILLNESS: Ms. Ramirez is brought to [facility] at the request of he r family members regarding altered mental status. According to medical records and emergency room pr oviders, the patient was brought over from [facility] as she was discharged yesterda y with complaints of altered mental status following the above-described procedure. This was done on 09/02/[address] Mehrdad Ferrer for likely uncontrolled hypertension. Presenting blood pressu re today is 210/110. In regard to the patient's neurologic status after the ER staff questioned the family members, they state that she is slightly less interactive today, although remains for the most part nonverbal. She intermittently follows commands which are also baseline according to them. Upo n initiation of blood pressure medications, the patient's blood pressure is now better controlled at 150s/82. Due to the patient's altered mental status, history of previous cerebellar hemorrhage, a he ad CT was obtained that is virtually stable from the [address] scans obtained, more sp ecifically compared to the 09/05/[address] However, it does show a slight increase in the patien t's ventricular size. This has been again stable on the past 3 [address]s. PHYSICAL EXAMINATION: The patient is sleeping but awakens easily to voice. She attempts to follow c ommands and does intermittently follow command in all 4 extremities. Her GCS currently is E4 V2 M6 w hic makes her GCS a 12. Her pupils are slow to react bilaterally, but they are equal bilaterally. The patient is unable to participate in orientation questions. Again, she is minimally verbal, thoug h is able to tell me that I am holding up 2 and 4 fingers on exam. The patient's EVD site is closed with hayden. There is no drainage from the site. I also examined the occipital incision that is cl osed with sutures and is clean, dry, and intact. There is no evidence of drainage or CSF leak. IMPRESSION/DIAGNOSES: 1. Status post cerebellar hemorrhage likely due to uncontrolled hypertension, status post suboccipit al craniotomy on 09/02/[address] Ferrer. 2. Altered mental status. 3. Hypertension. PLAN: I have discussed the patient's case with Dr. Bo and I reviewed the imaging with him. Venus n, as described above, the patient has a very minimal increase in her ventricular size over the last 3 postoperative head CTs. The continued left intracerebral hemorrhage remained stable, although may be slightly decreased compared to the 09/05/[address] The patient appears to be at neurologic ba seline, and therefore, does not require any type of neurosurgical intervention at this time. We will continue to monitor the patient's neurologic exam, although at this time, the more pressing issue is good control of her blood pressure. I would like her systolic blood pressure to remain less than 15 0. I would like her to be admitted to the ICU on Medicine Service and we will be the consulting prov ider. Again, ideally, her blood pressure will remain less than 150 systolic. I would like her to be n.p.o. and her head of bed elevated at 30 degrees at all times. Neurosurgery will continue to nirali ramos. We will likely turn over care to Dr. Ferrer's team tomorrow. Please call with any questions or changes in the patient's neurologic status.
--- NOTE | 2017-09-11 01:35 | HP ---
DATE OF ADMISSION: 09/10/2017 PRIMARY CARE PHYSICIAN: None so far. CHIEF COMPLAINT: Uncontrolled hypertension with recent hemorrhagic CVA. HISTORY OF PRESENT ILLNESS: Ms. Ramirez is a 67-year-old female, who was recently admitted to our facility and was discharged yesterday only to rehab, came back with the above-mentioned compl aints. History is mainly obtained by the chart review and case has been discussed with the admitting ER physician. There is no family at bedside and patient is nonverbal. She is not able to provide a ny history at this time. She was admitted on 09/02/2017 after being found down and was brought into the emergency room. She w as found to have a significant intracerebral hemorrhage requiring craniectomy in the suboccipital are a with evacuation of cerebellar hematoma as well as temporary EVD and frontal ventriculostomy. She w as admitted to the Neurosurgery service at that time and was in the Critical Care Unit on a Cardene d rip for hypertensive urgency. She has a history of hypertension with medication noncompliance. She was stabilized with improvement in her symptoms, a PEG tube was placed in due to residual right-sided hemiparesis as well as aphasia and dysphagia, and was discharged to inpatient rehabilitation at [facility] yesterday. Today, she was found to have uncontrolled hypertension with systolic blood pressure over 200 and was sent to the emergency room. There was also some question of the patient having more altered mental s tatus. At this time, there is no family at the bedside to further corroborate that story. The patie nt's blood pressure upon presentation was 221/106 and with labetalol, it improved to 136/74. CT scan of the brain was repeated, which showed persistent blood in the brain without any new intracranial h emorrhage. She did have a slight increase in the size of the ventricular system. She also underwent a CT scan of the abdomen and pelvis was given some demonstration of pain on physical examination. T his was unremarkable. Neurosurgery team was consulted and Internal Medicine team was called in to ad reyna this patient. She is being admitted to the Critical Care Unit for hypertensive emergency with re cent hemorrhagic CVA. She is currently hemodynamically stable on my examination with the blood press ure of 168/78. She is alert, but somnolent but easily arousable. PAST MEDICAL HISTORY: 1. 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 2. Dysphagia secondary to hemorrhagic CVA, status post PEG tube placement on 09/07/2017. 3. History of hypertension with some medication noncompliance. 4. History of methamphetamine and tobacco abuse. PAST SURGICAL HISTORY: 1. As above, she is status post craniectomy with hematoma removal and temporary EVD shunt placement with right ventriculostomy during her last hospitalization. 2. PEG tube placement. 3. History of appendectomy. 4. Right inguinal hernia repair. 5. Hysterectomy. 6. Tonsillectomy. 7. Nasal surgery for deviated septum. SOCIAL HISTORY: History of opioid abuse and tobacco abuse, approximately 1/4 of a pack per day. She currently is residing at [facility]. FAMILY HISTORY: Positive for hypertension. ALLERGIES: PENICILLIN, SULFONAMIDES, KEFLEX, and MORPHINE. CURRENT MEDICATIONS: The patient was supposed to be on the following medication on discharge, clonid ine 0.1 mg every 6 hours as needed, DuoNeb every 6 hours as needed, Haldol 0.5 mg at bedtime, and car vedilol 12.5 mg per tube b.i.d. REVIEW OF SYSTEMS: It is largely unobtainable as the patient has dense aphasia and she is also very somnolent at this time. PHYSICAL EXAMINATION: VITAL SIGNS: Upon presentation include blood pressure 191/126, pulse of 82, respirations 25, tempera ture 98.3, saturating 95% on room air. Current blood pressure 168/78, oxygen saturation 95% on room air, temperature 99.0, pulse 73, respirations 18. GENERAL: The patient is lying comfortably in bed and is asleep, but easily arousable. She does not follow commands, but appears alert when woken up. No acute distress. HEENT: Mucous membranes appear somewhat dry. No oropharyngeal exudate or erythema. Head is normoce phalic, atraumatic. Pupils equal, reactive to light bilaterally. NECK: Supple without any lymphadenopathy, JVD, or bruit. CHEST: Clear to auscultation without any wheezing, rales, or rhonchi. CARDIOVASCULAR: Rate rhythm is regular without any murmur, rubs, or gallops. ABDOMEN: Soft, nontender, nondistended. PEG tube is in place without any significant discharge arou nd the dressing. EXTREMITIES: Free of any cyanosis, clubbing, or edema. NEUROLOGICAL: She seems to have muscle strength at least 3/5 in upper extremities. Lower extremitie s appear flaccid, but the patient is not able to participate in the examination. Babinski bilaterall y up going. Cranial nerve 2-12 appears intact. There is no facial droop. Sensation and gait cannot be checked as the patient is not able to participate in the examination. Mentation kirby, she appear s awake, alert, and oriented to self and woken up. LABORATORY EXAMINATION: Her CBC shows WBC at 11.5 with 83% neutrophils, hemoglobin 10.2, platelet co unt of 232. Serum chemistries: BUN 21, otherwise unremarkable. Lipase is normal. Urinalysis unrem arkable. Chest x-ray by my review has no evidence to suggest pulmonary effusions, edema, or infiltra te. CT scan of the brain per my review as per HPI. It shows stable hematoma involving the left cere bellar hemisphere measuring 2.9 cm and stable hemorrhage at the level of the cerebellar ramus. CT sc an of the abdomen and pelvis, by my review, is negative for any acute changes. It is done without co ntrast. IMPRESSION AND PLAN: 1. Hypertensive urgency. The patient will be admitted again to critical care unit and will be monit ored closely with frequent neuro checks. At this time, it is unclear if she had any acute neurologic al changes in the rehab or not. Her brain CT scan appears unchanged except for mild ventricular dila tation from prior. We will consult Neurosurgery for further recommendations. Dr. Bo has been no tified by the emergency room physician. She will be continued on p.r.n. antihypertensives as her blo od pressure has normalized. We will avoid sudden drop in the blood pressure as well. Restart her Co reg. Monitor closely with frequent vital signs. 2. Recent intracerebral hemorrhage with hemorrhagic cerebrovascular accident. We will continue with symptomatic and supportive care. Avoid any antiplatelet and anticoagulant medications. Neurosurger y will also follow along with the patient. We will consult OT, PT, and speech therapist. 3. History of hypertension as above, we will restart her home medications and monitor. 4. Dysphagia secondary to hemorrhagic cerebrovascular accident. Continue PEG tube feeds with aspira tion precautions. We will reconsult speech therapist while she is here. 5. Leukocytosis. No clear etiology at this time. Appears reactive. She does not have any evidence of pneumonia or urinary tract infection. Once again, we will consult speech therapist to check for any silent aspiration because of tube feeds. 6. Deep venous thrombosis and gastrointestinal prophylaxis in the form of sequential compression dev ices. Avoid pharmacological deep venous thrombosis prophylaxis. 7. Code status: FULL CODE as per her last admission. DISPOSITION: The patient is admitted to the Critical Care Unit for uncontrolled hypertension or hype rtensive urgency with recent hemorrhagic CVA. Estimated length of stay is 2-3 midnights. Further ma nagement will depend upon her clinical course. She is hemodynamically stable for now.
[2017-09-11 07:23] LABS: ALT (SGPT) 34 U/L (8-55); AST (SGOT) 47 U/L (5-34); Alkaline Phosphatase 150 U/L (40-150); Anion Gap 12 mmol/L (10-20); BUN (Urea Nitrogen) 22 mg/dL (9.8-20.1); Bilirubin, Total 0.3 mg/dL (0.2-1.2); Calc. Creatinine Clearance 56 mL/min (70-130); Calcium 8.5 mg/dL (7.8-10.44); Carbon Dioxide 24 mmol/L (23-31); Chloride 108 mmol/L (98-107); Estimated GFR-MDRD 74; Globulin 2.6 g/dL (2.4-3.5); Protein, Total 5.5 g/dL (6.0-8.3)
[2017-09-11 07:47] LABS: Band 3 % (5-11); Mean Platelet Volume 7.9 fL (7.4-10.4); Neutrophil 84 % (42-75); Red Blood Cell (RBC) Count 3.45 mill/uL (4.20-5.40); White Blood Cell (WBC) Count 12.8 thou/uL (4.8-10.8)
[2017-09-11] MEDS ORDERED: FLU VACC TS2017-18 (>65YR) 0.5 ML SYRINGE IM ONE (09:00)
--- NOTE | 2017-09-11 09:40 | CON ---
DATE OF CONSULTATION: 09/11/2017 PULMONARY OR CRITICAL CARE CONSULTATION REASON FOR CONSULTATION: ICU admission. HISTORY OF THE PRESENT ILLNESS: This is a 67-year-old female who was just discharged from this [facility] on 09/09/2017. Previously, she had been admitted under the name of Antoinette Ashley. She was taken ca re of by my colleague, Dr. Glass. During that admission, she has been over at [facility]. She wa s noted to be severely hypertensive last night and she was sent to this facility for the purpose of p utting her on a drip. Apparently, the drip was never needed and she has not been on any type of drip since she was placed up in the CCU. All of her blood pressures in the CCU have been relatively norm al. The patient is barely communicative in terms of words, but does try to make gestures. PAST MEDICAL HISTORY: 1. She recently had a hemorrhagic stroke which required ventriculostomy and craniectomy. 2. Recent PEG tube placement. 3. Hypertension. 4. History of methamphetamine abuse. 5. History of appendectomy. 6. History right inguinal hernia repair. 7. Hysterectomy. 8. Tonsillectomy. 9. Nasal surgery for deviated septum. SOCIAL HISTORY: There is a history of opioid, methamphetamine and tobacco abuse. ALLERGIES: PENICILLIN, SULFONAMIDES, KEFLEX and MORPHINE. MEDICATIONS PRIOR TO ADMISSION: Haldol and carvedilol. REVIEW OF SYSTEMS: Cannot be obtained as the patient is noncommunicative. PHYSICAL EXAMINATION: VITAL SIGNS: Temperature 99.2, pulse 68, blood pressure 117/61. GENERAL: She is awake, does not appear to be in distress. HEENT: She has alopecia on the right side of her head from recent brain surgery. Pupils are reactiv e. Sclerae are anicteric. Oropharynx clear. NECK: No JVD. CHEST: Clear to auscultation. CARDIAC: S1, S2 regular. ABDOMEN: She has a PEG tube in place with no swelling. EXTREMITIES: No clubbing, cyanosis, or edema. LABORATORY DATA: Sodium 140, potassium 4, chloride 108, CO2 24, BUN 22, creatinine 0.7, and glucose 77. White blood cell count 12.8, hematocrit 34, and platelet count 259. ASSESSMENT: Severe hypertension at admission, which has now been corrected. This would leave me to believe that a dose of her antihypertensive medication may have been missed over at the rehab unit. PLAN: Since there are no drips needed, she can be transferred out to the floor for further monitorin g. I will notify Dr. Glass about patient's admission.
[2017-09-11] MEDS: Carvedilol 25 MG TAB PER TUBE SCH ×2 (10:02→19:59)
[2017-09-11] MEDS: Famotidine 40 MG/5 ML Oral Suspension PER TUBE SCH ×2 (10:07→20:00)
--- NOTE | 2017-09-11 14:29 | PDOC.PN ---
- Subjective Encounter Start Date: 09/11/17 Encounter Start Time: 14:28 Pt seen for followup re: hypertensive urgency. Answering questions by shaking or nodding head. Denies chest pain, shortness of breath. - Objective MAR Reviewed: Yes Vital Signs & Weight: Vital Signs (12 hours) Temp Pulse Pulse Pulse Resp BP BP 09/11/17 12:00 98 F 09/11/17 08:00 98.5 F 74 18 09/11/17 07:42 69 74 147/65 H 141/74 H 09/11/17 04:00 99.2 F Pulse Ox Pulse Ox Pulse Ox 09/11/17 12:00 09/11/17 08:00 100 09/11/17 07:42 100 99 09/11/17 04:00 Weight Admit Weight 109 lb 4.8 oz Weight 109 lb 4.8 oz Most Recent Monitor Data Heart Rate from ECG 68 NIBP 160/93 NIBP BP-Mean 119 Respiration from ECG 23 SpO2 100 I&O: 09/10/17 09/11/17 09/12/17 06:59 06:59 06:59 Output Total 285 180 Balance -285 -180 Result Diagrams: 09/11/17 03:37 09/11/17 03:37 EKG Reviewed by me: Yes (Tele: NSR) Phys Exam - Physical Examination Constitutional: NAD HEENT: moist MMs Neck: no JVD Respiratory: clear to auscultation bilateral Cardiovascular: RRR Gastrointestinal: soft, non-tender PEG+ Musculoskeletal: no edema Neurological: moves all 4 limbs Psychiatric: normal affect Skin: no rash, normal turgor, cap refill <2 seconds Dx/Plan (1) Hypertensive emergency Code(s): I16.1 - HYPERTENSIVE EMERGENCY Status: Acute (2) Pelvic pain Code(s): R10.2 - PELVIC AND PERINEAL PAIN Status: Acute - Plan * . Monitor vital signs, titrate antihypertensives as needed. Had a lengthy discussion with . Both of them have a h/o genital herpes. Of late, she has been clutching at her genitals and appearing to be in pain. Patient nods when asked if she has pain in the genital area. Patient's is on chronic suppressive therapy for herpes, requesting that she be on acyclovir as well. Genital exam reveals erythematous vagina, no vesicles at this time. Pt agreeable for acyclovir, will start acyclovir to see if it helps with the symptoms. Risks and side-effects discussed. Also did a HEAD AUTOMAT[employer] SAWYER-3 swab, await results. Review of Systems - Review of Systems Respiratory: negative: Cough, Dry, Shortness of Breath, Hemoptysis, SOB with Excertion, Pleuritic Pain, Sputum, Wheezing Cardiovascular: negative: Chest Pain, Palpitations, Orthopnea, Paroxysmal Noc. Dyspnea, Edema, Light Headedness Gastrointestinal: negative: Nausea, Vomiting, Abdominal Pain, Diarrhea, Constipation, Melena, Hematochezia Genitourinary: negative: Dysuria, Frequency, Incontinence, Hematuria, Retention - Medications/Allergies Allergies/Adverse Reactions: Allergies Allergy/AdvReac Type Severity Reaction Status Date / Time peanut Allergy Verified 09/02/17 15:00 Medications: Current Medications Acetaminophen (Tylenol) 650 mg OH Q4H PRN PRN Reason: Headache/Fever or Pain Acyclovir (Zovirax) 400 mg PO Q12H HORACE Al Hydroxide/Mg Hydroxide (Maalox) 30 ml PO Q8H PRN PRN Reason: Indigestion Albuterol/Ipratropium (Duoneb) 3 ml NEB Q6H PRN PRN Reason: SOB &/or Wheezing Bisacodyl (Dulcolax) 10 mg PO DAILYPRN PRN PRN Reason: Constipation Carvedilol (Coreg) 12.5 mg PER TUBE BID [facility] Last Admin: 09/11/17 10:02 Dose: 12.5 mg Famotidine (Pepcid) 20 mg PER TUBE BID [facility] Last Admin: 09/11/17 10:07 Dose: 20 mg Hydralazine HCl (Apresoline) 10 mg SLOW IVP Q4H PRN PRN Reason: Hypertension Magnesium Sulfate 1 gm/ Sodium (Chloride) 102 mls @ 102 mls/hr IV PRN PRN PRN Reason: MAG LEVEL 1.4 - 2.0 Magnesium Sulfate 2 gm/ Device 100 mls @ 100 mls/hr IVPB ASDIR PRN PRN Reason: MAGNESIUM < 1.4 Influenza Virus Vaccine (Fluzone High-Dose 2016- Syr) 0.5 ml IM .ONCE ONE Stop: 09/12/17 12:31 Labetalol HCl (Normodyne) 10 mg SLOW IVP Q2H PRN PRN Reason: SBP > 150 or DBP > 90 Magnesium Hydroxide (Milk Of Magnesium) 30 ml PO Q8H PRN PRN Reason: Constipation Mineral Oil/White Petrolatum (Lacri-Lube Ointment) 0 gm EA EYE PRN PRN PRN Reason: Dry Eyes Ccu Electrolyte (Replacement Protocol) 0 each FS PRN PRN PRN Reason: FOR ELECTROLYTE REPLACEMENT Ondansetron HCl (Zofran) 4 mg IVP Q6H PRN PRN Reason: Nausea/Vomiting Sodium Chloride (Flush - Normal Saline) 10 ml IVF PRN PRN PRN Reason: Saline Flush
[2017-09-11] MEDS: hydrALAZINE 20 MG/ML VIAL SLOW IVP PRN ×3 (14:33→18:18)
[2017-09-11] MEDS ORDERED: hydrALAZINE 20 MG/ML VIAL SLOW IVP SCH (18:30)
[2017-09-11] MEDS: Labetalol HCl 100 MG/20 ML VIAL SLOW IVP PRN ×2 (19:00→23:45)
[2017-09-11] MEDS: Acyclovir 400 mg Tablet PO SCH (19:59)
[2017-09-12] MEDS: hydrALAZINE 20 MG/ML VIAL SLOW IVP PRN ×5 (01:53→19:12)
[2017-09-12] MEDS: Labetalol HCl 100 MG/20 ML VIAL SLOW IVP PRN (02:55)
[2017-09-12] MEDS ORDERED: Nitroglycerin 2% Ointment 1 INCH/1 GM Packet TOP SCH ×2 (05:15→14:00)
[2017-09-12 05:36] LABS: ALT (SGPT) 22 U/L (8-55); AST (SGOT) 21 U/L (5-34); Alkaline Phosphatase 129 U/L (40-150); Anion Gap 11 mmol/L (10-20); BUN (Urea Nitrogen) 24 mg/dL (9.8-20.1); Bilirubin, Total 0.3 mg/dL (0.2-1.2); Calc. Creatinine Clearance 56 mL/min (70-130); Calcium 8.9 mg/dL (7.8-10.44); Carbon Dioxide 25 mmol/L (23-31); Chloride 104 mmol/L (98-107); Estimated GFR-MDRD 73; Globulin 2.9 g/dL (2.4-3.5)
[2017-09-12 05:45] LABS: Band 5 % (5-11); Hematocrit 35.4 % (36.0-47.0); Mean Platelet Volume 7.7 fL (7.4-10.4); Neutrophil 81 % (42-75); Red Blood Cell (RBC) Count 3.73 mill/uL (4.20-5.40); White Blood Cell (WBC) Count 10.5 thou/uL (4.8-10.8)
[2017-09-12] MEDS: Carvedilol 25 MG TAB PER TUBE SCH ×2 (08:48→21:38)
[2017-09-12] MEDS ORDERED: Azithromycin 200 MG/5 ML Oral Suspension PER TUBE SCH (09:00)
[2017-09-12] MEDS ORDERED: Azithromycin 250 MG TAB PER TUBE SCH (09:00)
--- NOTE | 2017-09-12 09:05 | PRG ---
DATE OF SERVICE: 09/11/2017 Ms. Ramirez was recently discharged from the ICU following an acute posterior fossa intracranial hemo rrhage, [facility] She returned yesterday evening fo r uncontrolled hypertension and decrease in her mental status. A repeat head CT was done which appea rs stable and unchanged. I am seeing the patient at the bedside today. She opens her eyes, looks ar ound, moves all 4 extremities and follows commands. This is consistent with her previous neurologica l exam. Her incision appears dry and intact. No drainage is appreciated. I discussed the patient's return with Dr. Ferrer. He has also looked at her films. No further maryann rosurgical intervention is recommended at this time. The patient's decreased mental status may have been related to her uncontrolled hypertension. It is being managed by the Medical Service. We will assist in any way that is required. Please reach out to the Neurosurgical Service for additional que stions or concerns. The patient's present condition and further neurosurgical plans were discussed with the patient's sandy tolentino by myself and Dr. Ferrer.
[2017-09-12] MEDS: Famotidine 40 MG/5 ML Oral Suspension PER TUBE SCH ×2 (10:26→21:38)
[2017-09-12] MEDS: Acyclovir 400 mg Tablet PO SCH ×2 (10:26→21:38)
[2017-09-12] MEDS ORDERED: HYDROcodone/Acetaminophen 7.5/325 mg Tablet PER TUBE PRN (11:21)
[2017-09-12] MEDS: HYDROcodone/Acetaminophen 5/325 mg Tablet PER TUBE PRN ×2 (11:26→21:39)
[2017-09-12] MEDS ORDERED: FLU VACC TS2017-18 (>65YR) 0.5 ML SYRINGE IM ONE (12:30)
[2017-09-12] MEDS ORDERED: Fluconazole 100 MG TAB PO SCH (14:45)
--- NOTE | 2017-09-12 14:49 | PDOC.PN ---
- Subjective Encounter Start Date: 09/12/17 Encounter Start Time: 14:45 Subjective: feels Ok. nods yes and speaks some -: improved speech & upper extremity strength. - Objective MAR Reviewed: Yes Vital Signs & Weight: Vital Signs (12 hours) Temp Pulse Pulse Pulse Resp BP BP 09/12/17 13:36 09/12/17 12:03 82 09/12/17 11:40 97.6 F 65 18 09/12/17 09:33 09/12/17 09:21 80 75 125/88 09/12/17 08:48 82 09/12/17 08:00 97.8 F 82 16 09/12/17 07:43 97.8 F 82 16 09/12/17 04:18 97.6 F 67 20 09/12/17 02:55 65 175/85 H BP BP Pulse Ox 09/12/17 13:36 117/63 09/12/17 12:03 09/12/17 11:40 185/83 H 97 09/12/17 09:33 125/88 09/12/17 09:21 144/82 H 09/12/17 08:48 09/12/17 08:00 09/12/17 07:43 172/98 H 96 09/12/17 04:18 198/107 H 98 09/12/17 02:55 Weight Admit Weight 109 lb 4.8 oz Weight 109 lb 14.4 oz Most Recent Monitor Data Heart Rate from ECG 70 NIBP 130/77 NIBP BP-Mean 95 Respiration from ECG 16 SpO2 96 I&O: 09/11/17 09/12/17 09/13/17 06:59 06:59 06:59 Intake Total 150 Output Total 285 245 Balance -285 -95 Result Diagrams: 09/12/17 04:51 09/12/17 04:51 Additional Labs: Microbiology 09/11/17 14:20 Cervical (region of neck) - Swab Vaginitis Screen - Final 09/10/17 19:20 Urine sow catheter Urine Culture - Final NO GROWTH AT 48 HOURS 09/10/17 19:48 Venous blood - Left Hand Blood Culture - Preliminary NO GROWTH AT 48 HOURS 09/10/17 19:47 Venous blood - Left Arm Blood Culture - Preliminary NO GROWTH AT 48 HOURS Radiology Reviewed by me: Yes (MRI brain - no acute CVA) Phys Exam - Physical Examination weak and tired looking.slumped in bed HEENT: PERRLA, sclera anicteric oral viri.no other lesions.mucosa dry . Neck: no nodes, no JVD, supple, full ROM Respiratory: no wheezing, no rales, no rhonchi, clear to auscultation bilateral Cardiovascular: RRR, no significant murmur Gastrointestinal: soft, non-tender, no distention, positive bowel sounds PEG in place Musculoskeletal: no edema, pulses present aphsia /dysarthria.Right lower leg hemiparesis Psychiatric: normal affect, A&O x 3 Skin: no rash Dx/Plan (1) Hypertensive emergency Code(s): I16.1 - HYPERTENSIVE EMERGENCY Status: Acute (2) Hemorrhagic cerebrovascular accident (CVA) Code(s): I61.9 - NONTRAUMATIC INTRACEREBRAL HEMORRHAGE, UNSPECIFIED Status: Acute Comment: Recent 08/2017 (3) H/O drug abuse Code(s): Z87.898 - PERSONAL HISTORY OF OTHER SPECIFIED CONDITIONS Status: Acute (4) Pelvic pain Code(s): R10.2 - PELVIC AND PERINEAL PAIN Status: Acute - Plan PT/OT, director social welfare, incentive spirometry, DVT proph w/SCDs Vaginal screen +ve for viri.treat w Diflucan for candidiasis. -: add GC/Chalmydia empiric Rx w 1 dose azithromycin 1 gm. -: add Nystatin swish & swollow. -: increase coreg as BP running very high consistently.DC Nitro patch -: Hemodynamically stable.NS following * .If BP improves. will DC back to rehab tomorrow. * Cont TF.Tolerating well. * OT,PT,WANT AD RECEIVER following Review of Systems - Review of Systems Other: Limited due to aphasia - Medications/Allergies Allergies/Adverse Reactions: Allergies Allergy/AdvReac Type Severity Reaction Status Date / Time peanut Allergy Verified 09/02/17 15:00 Medications: Current Medications Acetaminophen (Tylenol) [address] Q4H PRN PRN Reason: Headache/Fever or Pain Hydrocodone Bitart/Acetaminophen ([place] 5/325) 1 tab PER TUBE Q4H PRN PRN Reason: Moderate Pain (4-6) Last Admin: 09/12/17 11:26 Dose: 1 tab Acyclovir (Zovirax) 400 mg PO Q12HR [facility] Last Admin: 09/12/17 10:26 Dose: 400 mg Al Hydroxide/Mg Hydroxide (Maalox) 30 ml PO Q8H PRN PRN Reason: Indigestion Albuterol/Ipratropium (Duoneb) 3 ml NEB Q6H PRN PRN Reason: SOB &/or Wheezing Bisacodyl (Dulcolax) 10 mg PO DAILYPRN PRN PRN Reason: Constipation Carvedilol (Coreg) 25 mg PER TUBE BID [facility] Last Admin: 09/12/17 08:48 Dose: 25 mg Famotidine (Pepcid) 20 mg PER TUBE BID [facility] Last Admin: 09/12/17 10:26 Dose: 20 mg Fluconazole (Diflucan) 150 mg PO NOW [facility] Stop: 09/12/17 15:30 Hydralazine HCl (Apresoline) 10 mg SLOW IVP Q4H PRN PRN Reason: Hypertension Last Admin: 09/12/17 12:03 Dose: 10 mg Magnesium Sulfate 1 gm/ Sodium (Chloride) 102 mls @ 102 mls/hr IV PRN PRN PRN Reason: MAG LEVEL 1.4 - 2.0 Magnesium Sulfate 2 gm/ Device 100 mls @ 100 mls/hr IVPB ASDIR PRN PRN Reason: MAGNESIUM < 1.4 Labetalol HCl (Normodyne) 10 mg SLOW IVP Q2H PRN PRN Reason: SBP > 150 or DBP > 90 Last Admin: 09/12/17 02:55 Dose: 2 ml Magnesium Hydroxide (Milk Of Magnesium) 30 ml PO Q8H PRN PRN Reason: Constipation Mineral Oil/White Petrolatum (Lacri-Lube Ointment) 0 gm EA EYE PRN PRN PRN Reason: Dry Eyes Ccu Electrolyte (Replacement Protocol) 0 each FS PRN PRN PRN Reason: FOR ELECTROLYTE REPLACEMENT Nystatin (Mycostatin) 500,000 units SSW QID [facility] Ondansetron HCl (Zofran) 4 mg IVP Q6H PRN PRN Reason: Nausea/Vomiting Sodium Chloride (Flush - Normal Saline) 10 ml IVF PRN PRN PRN Reason: Saline Flush Last Admin: 09/12/17 08:48 Dose: 10 ml
[2017-09-12] MEDS: Nystatin 500,000 UNITS/5 ML UDCUP SSW SCH ×3 (15:01→21:38)
[2017-09-12] MEDS ORDERED: Lactated Ringer's 1,000 ML IV SCH (16:30)
--- NOTE | 2017-09-12 16:32 | PRG ---
DATE OF SERVICE: 09/12/2017 SERVICE: Pulmonary Medicine. INTERVAL HISTORY: The patient is doing well from a respiratory standpoint. Neurologically, she alta ins stable. She is having intermittent high blood pressures, which are being controlled with p.r.n. medications. Otherwise, there has been no interval change to her condition. She cannot provide nieves tional elements of the history. PHYSICAL EXAMINATION: VITAL SIGNS: Afebrile, pulse 71, blood pressure 217/106, respirations 18, saturation 97% on room air . GENERAL: Patient is awake, alert, in no apparent distress. LUNGS: Excellent air entry with no prolonged expiratory phase, wheezing or crackles. HEART: Normal rate and regular. ABDOMEN: Soft, nontender, nondistended. Bowel sounds positive. PEG tube in place. MUSCULOSKELETAL: No cyanosis or clubbing. There is a little bit of the skin tenting throughout. GENITOURINARY: No Ivey. LABORATORY DATA: WBC 10.5, hemoglobin 11.7, and platelets 324,000. Neutrophils are 81% with 5% band count. Basic metabolic profile and liver function studies are essentially unremarkable. Blood cult ures x2 and urine culture is negative. ASSESSMENT: 1. Hypertension without evidence of end organ damage. 2. Recent intraparenchymal hemorrhage in the posterior fossa with intraventricular extension, status post craniectomy. PLAN: The patient appears to be clinically a little dry. This might be why her blood pressures are still labile. As such, we will provide her with a small bolus of fluids. If this proves helpful, we may need to increase her free water in the outpatient setting. Blood pressure medications will be t itrated per primary service. There is no further requirement for inpatient Pulmonary or Critical Car e opinion at this time, as such, we will sign off. Please call with additional questions or concerns moving forward.
[2017-09-13] MEDS: hydrALAZINE 20 MG/ML VIAL SLOW IVP PRN ×2 (05:08→17:19)
[2017-09-13 06:20] LABS: Band 1 % (5-11); Hematocrit 32.7 % (36.0-47.0); Mean Platelet Volume 7.4 fL (7.4-10.4); Neutrophil 84 % (42-75); Red Blood Cell (RBC) Count 3.44 mill/uL (4.20-5.40); White Blood Cell (WBC) Count 10.4 thou/uL (4.8-10.8)
[2017-09-13] MEDS: HYDROcodone/Acetaminophen 5/325 mg Tablet PER TUBE PRN ×2 (06:43→20:44)
[2017-09-13 06:48] LABS: Anion Gap 11 mmol/L (10-20); BUN (Urea Nitrogen) 22 mg/dL (9.8-20.1); Calc. Creatinine Clearance 52 mL/min (70-130); Calcium 8.6 mg/dL (7.8-10.44); Carbon Dioxide 26 mmol/L (23-31); Chloride 102 mmol/L (98-107); Estimated GFR-MDRD 73
[2017-09-13] MEDS: Famotidine 40 MG/5 ML Oral Suspension PER TUBE SCH ×2 (09:23→20:45)
[2017-09-13] MEDS: hydrALAZINE 25 MG TAB PER TUBE SCH ×3 (09:25→20:43)
[2017-09-13] MEDS: Acyclovir 400 mg Tablet PO SCH ×2 (09:25→20:44)
[2017-09-13] MEDS: Carvedilol 25 MG TAB PER TUBE SCH (09:25)
[2017-09-13] MEDS: Nystatin 500,000 UNITS/5 ML UDCUP SSW SCH ×4 (09:26→20:43)
--- NOTE | 2017-09-13 13:07 | PDOC.PN ---
- Subjective Encounter Start Date: 09/13/17 Encounter Start Time: 13:06 Subjective: sitting up more awake today.Reports feeling OK -: PT in room - Objective MAR Reviewed: Yes Vital Signs & Weight: Vital Signs (12 hours) Temp Pulse Resp BP BP Pulse Ox 09/13/17 12:43 98.6 F 61 20 125/73 97 09/13/17 10:31 101/58 L 09/13/17 10:15 96/62 09/13/17 09:55 127/72 09/13/17 09:25 61 169/74 H 162/74 H 09/13/17 08:45 98.3 F 68 20 97 09/13/17 08:00 98.3 F 68 20 169/94 H 97 09/13/17 05:57 73 163/83 H 09/13/17 05:08 68 187/94 H 09/13/17 04:49 96 09/13/17 04:30 98.4 F 66 16 212/123 H 96 Weight Admit Weight 109 lb 4.8 oz Weight 102 lb 14.4 oz Most Recent Monitor Data Heart Rate from ECG 70 NIBP 130/77 NIBP BP-Mean 95 Respiration from ECG 16 SpO2 96 I&O: 09/12/17 09/13/17 09/14/17 06:59 06:59 06:59 Intake Total 150 2859 80 Output Total 845 450 Balance -695 2409 80 Result Diagrams: 09/13/17 05:11 09/13/17 05:11 Additional Labs: Microbiology 09/11/17 14:20 Cervical (region of neck) - Swab Vaginitis Screen - Final 09/10/17 19:20 Urine sow catheter Urine Culture - Final NO GROWTH AT 48 HOURS 09/10/17 19:48 Venous blood - Left Hand Blood Culture - Preliminary NO GROWTH AT 48 HOURS 09/10/17 19:47 Venous blood - Left Arm Blood Culture - Preliminary NO GROWTH AT 48 HOURS Phys Exam - Physical Examination Constitutional: NAD sleepy but arousable HEENT: PERRLA, moist MMs, sclera anicteric oral candidiasis Neck: no nodes, no JVD, supple, full ROM Respiratory: no wheezing, no rales, no rhonchi, clear to auscultation bilateral Cardiovascular: RRR, no significant murmur Gastrointestinal: soft, non-tender, no distention, positive bowel sounds Musculoskeletal: no edema, pulses present right hemiparesis,maily legs.Aphasia Psychiatric: normal affect, A&O x 3 Skin: no rash Dx/Plan (1) Hypertensive emergency Code(s): I16.1 - HYPERTENSIVE EMERGENCY Status: Resolved (2) Hemorrhagic cerebrovascular accident (CVA) Code(s): I61.9 - NONTRAUMATIC INTRACEREBRAL HEMORRHAGE, UNSPECIFIED Status: Acute Comment: Recent 08/2017 (3) H/O drug abuse Code(s): Z87.898 - PERSONAL HISTORY OF OTHER SPECIFIED CONDITIONS Status: Acute (4) Pelvic pain Code(s): R10.2 - PELVIC AND PERINEAL PAIN Status: Acute - Plan DVT proph w/SCDs BP much improved. restart Hydralazine.reduce Coreg back to 12.5 BID. -: Cont supportive care post CVA.OT,PT,CROZE CUTTER. -: hemodynamically stable.OK to transfer to rehab again today. -: Treated empiricially for GC/Chalmydia & Vaginal candidiasis -: on empiric Rx for genital Herpes per 's request.finish 7 days * . Review of Systems - Review of Systems Other: can not be obtained reliably due to recent CVA and aphasia,dysarthria - Medications/Allergies Allergies/Adverse Reactions: Allergies Allergy/AdvReac Type Severity Reaction Status Date / Time peanut Allergy Verified 09/02/17 15:00 Medications: Current Medications Acetaminophen (Tylenol) 650 mg [place] Q4H PRN PRN Reason: Headache/Fever or Pain Hydrocodone Bitart/Acetaminophen ([place] 5/325) 1 tab PER TUBE Q4H PRN PRN Reason: Moderate Pain (4-6) Last Admin: 09/13/17 06:43 Dose: 1 tab Acyclovir (Zovirax) 400 mg PO Q12HR [facility] Last Admin: 09/13/17 09:25 Dose: 400 mg Al Hydroxide/Mg Hydroxide (Maalox) 30 ml PO Q8H PRN PRN Reason: Indigestion Albuterol/Ipratropium (Duoneb) 3 ml NEB Q6H PRN PRN Reason: SOB &/or Wheezing Last Admin: 09/12/17 17:20 Dose: 3 ml Bisacodyl (Dulcolax) 10 mg PO DAILYPRN PRN PRN Reason: Constipation Carvedilol (Coreg) 12.[address] [facility] Famotidine (Pepcid) [address] [facility] Last Admin: 09/13/17 09:23 Dose: 20 mg Hydralazine HCl (Apresoline) 10 mg SLOW IVP Q4H PRN PRN Reason: Hypertension Last Admin: 09/13/17 05:08 Dose: 10 mg Hydralazine HCl (Apresoline) [address] [facility] Last Admin: 09/13/17 09:25 Dose: 50 mg Magnesium Sulfate 1 gm/ Sodium (Chloride) 102 mls @ 102 mls/hr IV PRN PRN PRN Reason: MAG LEVEL 1.4 - 2.0 Magnesium Sulfate 2 gm/ Device 100 mls @ 100 mls/hr IVPB ASDIR PRN PRN Reason: MAGNESIUM < 1.4 Labetalol HCl (Normodyne) 10 mg SLOW IVP Q2H PRN PRN Reason: SBP > 150 or DBP > 90 Last Admin: 09/12/17 02:55 Dose: 2 ml Magnesium Hydroxide (Milk Of Magnesium) 30 ml PO Q8H PRN PRN Reason: Constipation Mineral Oil/White Petrolatum (Lacri-Lube Ointment) 0 gm EA EYE PRN PRN PRN Reason: Dry Eyes Ccu Electrolyte (Replacement Protocol) 0 each FS PRN PRN PRN Reason: FOR ELECTROLYTE REPLACEMENT Nystatin (Mycostatin) 500,[address] [facility] Last Admin: 09/13/17 12:32 Dose: 500,000 units Ondansetron HCl (Zofran) 4 mg IVP Q6H PRN PRN Reason: Nausea/Vomiting Sodium Chloride (Flush - Normal Saline) 10 ml IVF PRN PRN PRN Reason: Saline Flush Last Admin: 09/12/17 08:48 Dose: 10 ml
[2017-09-13] MEDS: Acetaminophen 650 MG/20.3 ML UDCUP PER TUBE PRN (16:16)
[2017-09-13] MEDS ORDERED: Carvedilol 25 MG TAB PER TUBE SCH (21:00)
[2017-09-14] MEDS: HYDROcodone/Acetaminophen 5/325 mg Tablet PER TUBE PRN ×2 (03:06→17:21)
[2017-09-14] MEDS: hydrALAZINE 20 MG/ML VIAL SLOW IVP PRN ×2 (04:06→16:40)
[2017-09-14 05:41] LABS: Band 3 % (5-11); Mean Platelet Volume 7.8 fL (7.4-10.4); Neutrophil 79 % (42-75); Red Blood Cell (RBC) Count 3.56 mill/uL (4.20-5.40); White Blood Cell (WBC) Count 12.8 thou/uL (4.8-10.8)
[2017-09-14] MEDS: Acyclovir 400 mg Tablet PO SCH ×2 (08:00→21:28)
[2017-09-14] MEDS: hydrALAZINE 25 MG TAB PER TUBE SCH ×3 (08:01→21:28)
[2017-09-14] MEDS: Carvedilol 25 MG TAB PER TUBE SCH ×2 (08:01→21:29)
[2017-09-14] MEDS: Nystatin 500,000 UNITS/5 ML UDCUP SSW SCH ×4 (08:01→21:29)
[2017-09-14] MEDS: Famotidine 40 MG/5 ML Oral Suspension PER TUBE SCH ×2 (09:46→21:29)
[2017-09-14] MEDS: Acetaminophen 650 MG/20.3 ML UDCUP PER TUBE PRN (09:47)
--- NOTE | 2017-09-14 12:15 | PDOC.PN ---
- Subjective Encounter Start Date: 09/14/17 Encounter Start Time: 12:14 Subjective: no new complaints,no overnight events - Objective MAR Reviewed: Yes Vital Signs & Weight: Vital Signs (12 hours) Temp Pulse Resp BP BP Pulse Ox 09/14/17 11:56 98.7 F 67 20 135/57 L 95 09/14/17 09:43 119/73 09/14/17 08:20 99.6 F 70 18 97 09/14/17 08:01 70 206/106 H 09/14/17 07:55 99.6 F 70 18 206/106 H 97 09/14/17 04:22 97 09/14/17 04:06 69 09/14/17 03:59 99.6 F 69 18 216/105 H 97 Weight Admit Weight 109 lb 4.8 oz Weight 106 lb 12.8 oz Most Recent Monitor Data Heart Rate from ECG 70 NIBP 130/77 NIBP BP-Mean 95 Respiration from ECG 16 SpO2 96 I&O: 09/13/17 09/14/17 09/15/17 06:59 06:59 06:59 Intake Total 2859 315.5 Output Total 450 Balance 2409 315.5 Result Diagrams: 09/14/17 03:53 09/13/17 05:11 Additional Labs: Microbiology 09/11/17 14:20 Cervical (region of neck) - Swab Vaginitis Screen - Final 09/10/17 19:20 Urine sow catheter Urine Culture - Final NO GROWTH AT 48 HOURS 09/10/17 19:48 Venous blood - Left Hand Blood Culture - Preliminary NO GROWTH AT 48 HOURS 09/10/17 19:47 Venous blood - Left Arm Blood Culture - Preliminary NO GROWTH AT 48 HOURS Phys Exam - Physical Examination Constitutional: NAD sleepy but arousable easily HEENT: PERRLA, moist MMs, sclera anicteric Neck: no nodes, no JVD, supple, full ROM Respiratory: no wheezing, no rales, no rhonchi, clear to auscultation bilateral Cardiovascular: RRR, no significant murmur Gastrointestinal: soft, non-tender, no distention, positive bowel sounds PEG in place Musculoskeletal: no edema, pulses present R LE hemiparesis,aphasia,dysphagia Psychiatric: normal affect Skin: no rash Dx/Plan (1) Hypertensive emergency Code(s): I16.1 - HYPERTENSIVE EMERGENCY Status: Resolved Comment: Labile BP due to recent Ac CVA (2) Hemorrhagic cerebrovascular accident (CVA) Code(s): I61.9 - NONTRAUMATIC INTRACEREBRAL HEMORRHAGE, UNSPECIFIED Status: Acute Comment: Recent 08/2017 (3) H/O drug abuse Code(s): Z87.898 - PERSONAL HISTORY OF OTHER SPECIFIED CONDITIONS Status: Acute (4) Pelvic pain Code(s): R10.2 - PELVIC AND PERINEAL PAIN Status: Acute Comment: s/p Rx for GC/Chalmydia and viri - Plan plan discussed w/ family, PT/OT, social service liaison, incentive spirometry, DVT proph w/SCDs BP labile as recent CVA.cont PO meds w prn meds -: OK to go to rehab from IM stand point.NS and PCCM signed off -: will arrange * . Review of Systems - Review of Systems Other: can not be obtained reliably due to aphasia and some somnolence - Medications/Allergies Allergies/Adverse Reactions: Allergies Allergy/AdvReac Type Severity Reaction Status Date / Time peanut Allergy Verified 09/02/17 15:00 Medications: Current Medications Acetaminophen (Tylenol) 650 mg [place] Q4H PRN PRN Reason: Headache/Fever or Pain Acetaminophen (Tylenol Elixir) 500 mg PER TUBE Q6H PRN PRN Reason: Headache/Fever or Pain Last Admin: 09/14/17 09:47 Dose: 500 mg Hydrocodone Bitart/Acetaminophen ([place] 5/325) 1 tab PER TUBE Q4H PRN PRN Reason: Moderate Pain (4-6) Last Admin: 09/14/17 03:06 Dose: 1 tab Acyclovir (Zovirax) 400 mg PO Q12HR [facility] Last Admin: 09/14/17 08:00 Dose: 400 mg Al Hydroxide/Mg Hydroxide (Maalox) 30 ml PO Q8H PRN PRN Reason: Indigestion Albuterol/Ipratropium (Duoneb) 3 ml NEB Q6H PRN PRN Reason: SOB &/or Wheezing Last Admin: 09/12/17 17:20 Dose: 3 ml Bisacodyl (Dulcolax) 10 mg PO DAILYPRN PRN PRN Reason: Constipation Carvedilol (Coreg) 25 mg PER TUBE BID [facility] Last Admin: 09/14/17 08:01 Dose: 25 mg Clonidine (Catapres) 0.1 mg PER TUBE Q4H PRN PRN Reason: SBP >160 Famotidine (Pepcid) 20 mg PER TUBE BID [facility] Last Admin: 09/14/17 09:46 Dose: 20 mg Hydralazine HCl (Apresoline) 10 mg SLOW IVP Q4H PRN PRN Reason: Hypertension Last Admin: 09/14/17 04:06 Dose: 10 mg Hydralazine HCl (Apresoline) 50 mg PER TUBE TID [facility] Last Admin: 09/14/17 08:01 Dose: 50 mg Magnesium Sulfate 1 gm/ Sodium (Chloride) 102 mls @ 102 mls/hr IV PRN PRN PRN Reason: MAG LEVEL 1.4 - 2.0 Magnesium Sulfate 2 gm/ Device 100 mls @ 100 mls/hr IVPB ASDIR PRN PRN Reason: MAGNESIUM < 1.4 Labetalol HCl (Normodyne) 10 mg SLOW IVP Q2H PRN PRN Reason: SBP > 150 or DBP > 90 Last Admin: 09/12/17 02:55 Dose: 2 ml Magnesium Hydroxide (Milk Of Magnesium) 30 ml PO Q8H PRN PRN Reason: Constipation Mineral Oil/White Petrolatum (Lacri-Lube Ointment) 0 gm EA EYE PRN PRN PRN Reason: Dry Eyes Ccu Electrolyte (Replacement Protocol) 0 each FS PRN PRN PRN Reason: FOR ELECTROLYTE REPLACEMENT Nystatin (Mycostatin) 500,000 units SSW QID [facility] Last Admin: 09/14/17 08:01 Dose: 500,000 units Ondansetron HCl (Zofran) 4 mg IVP Q6H PRN PRN Reason: Nausea/Vomiting Sodium Chloride (Flush - Normal Saline) 10 ml IVF PRN PRN PRN Reason: Saline Flush Last Admin: 09/12/17 08:48 Dose: 10 ml
[2017-09-14] MEDS: cloNIDine 0.1 MG TAB PER TUBE PRN (17:21)
[2017-09-15 05:27] LABS: Band 1 % (5-11); Hematocrit 32.7 % (36.0-47.0); Mean Platelet Volume 7.3 fL (7.4-10.4); Neutrophil 78 % (42-75); Red Blood Cell (RBC) Count 3.43 mill/uL (4.20-5.40); White Blood Cell (WBC) Count 10.4 thou/uL (4.8-10.8)
[2017-09-15] MEDS: cloNIDine 0.1 MG TAB PER TUBE PRN (06:15)
[2017-09-15] MEDS: Acetaminophen 650 MG/20.3 ML UDCUP PER TUBE PRN (06:16)
[2017-09-15] MEDS: Carvedilol 25 MG TAB PER TUBE SCH (08:34)
[2017-09-15] MEDS: Nystatin 500,000 UNITS/5 ML UDCUP SSW SCH ×3 (08:34→16:14)
[2017-09-15] MEDS: hydrALAZINE 25 MG TAB PER TUBE SCH ×2 (08:34→16:13)
[2017-09-15] MEDS ORDERED: cloNIDine 0.1 MG TAB PO SCH ×3 (09:11→21:00)
[2017-09-15] MEDS: Famotidine 40 MG/5 ML Oral Suspension PER TUBE SCH (10:42)
[2017-09-15] MEDS: Acyclovir 400 mg Tablet PO SCH (11:03)
--- NOTE | 2017-09-15 13:28 | PDOC.PN ---
- Subjective Encounter Start Date: 09/15/17 Encounter Start Time: 13:25 Subjective: feels better discussed w nursing.no new events - Objective MAR Reviewed: Yes Vital Signs & Weight: Vital Signs (12 hours) Temp Pulse Pulse Pulse Pulse Resp BP 09/15/17 11:55 98.4 F 67 20 09/15/17 11:10 135/76 09/15/17 09:28 61 60 70 09/15/17 08:37 97.5 F L 65 20 09/15/17 08:34 65 147/81 H 09/15/17 08:00 97.5 F L 65 20 09/15/17 06:15 200/88 H 09/15/17 05:00 98.4 F 73 18 BP BP BP BP Pulse Ox Pulse Ox Pulse Ox 09/15/17 11:55 126/73 97 09/15/17 11:10 09/15/17 09:28 118/61 85/60 L 107/56 L 95 96 09/15/17 08:37 98 09/15/17 08:34 09/15/17 08:00 147/81 H 98 09/15/17 06:15 09/15/17 05:00 96 Pulse Ox 09/15/17 11:55 09/15/17 11:10 09/15/17 09:28 97 09/15/17 08:37 09/15/17 08:34 09/15/17 08:00 09/15/17 06:15 09/15/17 05:00 Weight Admit Weight 109 lb 4.8 oz Weight 107 lb 6.4 oz Most Recent Monitor Data Heart Rate from ECG 70 NIBP 130/77 NIBP BP-Mean 95 Respiration from ECG 16 SpO2 96 I&O: 09/14/17 09/15/17 09/16/17 06:59 06:59 06:59 Intake Total 315.5 1550 30 Balance 315.5 1550 30 Result Diagrams: 09/15/17 04:19 09/13/17 05:11 Additional Labs: Microbiology 09/11/17 14:20 Cervical (region of neck) - Swab Vaginitis Screen - Final 09/10/17 19:20 Urine sow catheter Urine Culture - Final NO GROWTH AT 48 HOURS 09/10/17 19:48 Venous blood - Left Hand Blood Culture - Preliminary NO GROWTH AT 48 HOURS 09/10/17 19:47 Venous blood - Left Arm Blood Culture - Preliminary NO GROWTH AT 48 HOURS Phys Exam - Physical Examination Constitutional: NAD HEENT: PERRLA, moist MMs, sclera anicteric, oral pharynx no lesions Neck: no nodes, no JVD, supple, full ROM Respiratory: no wheezing, no rales, no rhonchi, clear to auscultation bilateral Cardiovascular: RRR, no significant murmur Gastrointestinal: soft, non-tender, no distention, positive bowel sounds peg in place Musculoskeletal: no edema, pulses present right leg weakness.aphasia Psychiatric: normal affect, A&O x 3 Skin: no rash Dx/Plan (1) Hypertensive emergency Code(s): I16.1 - HYPERTENSIVE EMERGENCY Status: Resolved Comment: Labile BP due to recent Ac CVA (2) Hemorrhagic cerebrovascular accident (CVA) Code(s): I61.9 - NONTRAUMATIC INTRACEREBRAL HEMORRHAGE, UNSPECIFIED Status: Acute Comment: Recent 08/2017 (3) H/O drug abuse Code(s): Z87.898 - PERSONAL HISTORY OF OTHER SPECIFIED CONDITIONS Status: Acute (4) Pelvic pain Code(s): R10.2 - PELVIC AND PERINEAL PAIN Status: Acute Comment: s/p Rx for GC/Chalmydia and viri - Plan PT/OT, nursing home social worker, respiratory therapy, incentive spirometry, out of bed/ ambulate, DVT proph w/SCDs BP better but still some readings of high and low. -: Clonidine added but stopped as it dropped HR in 50s. -: will use Norvasc instead. -: cont Tube feeds. -: cont to monitor * . Review of Systems - Review of Systems Other: limited due to aphasia - Medications/Allergies Allergies/Adverse Reactions: Allergies Allergy/AdvReac Type Severity Reaction Status Date / Time peanut Allergy Verified 09/02/17 15:00 Medications: Current Medications Acetaminophen (Tylenol) 650 mg [place] Q4H PRN PRN Reason: Headache/Fever or Pain Acetaminophen (Tylenol Elixir) 500 mg PER TUBE Q6H PRN PRN Reason: Headache/Fever or Pain Last Admin: 09/15/17 06:16 Dose: 500 mg Hydrocodone Bitart/Acetaminophen ([place] 5/325) 1 tab PER TUBE Q4H PRN PRN Reason: Moderate Pain (4-6) Last Admin: 09/14/17 17:21 Dose: 1 tab Acyclovir (Zovirax) 400 mg PO Q12HR [facility] Last Admin: 09/15/17 11:03 Dose: 400 mg Al Hydroxide/Mg Hydroxide (Maalox) 30 ml PO Q8H PRN PRN Reason: Indigestion Albuterol/Ipratropium (Duoneb) 3 ml NEB Q6H PRN PRN Reason: SOB &/or Wheezing Last Admin: 09/12/17 17:20 Dose: 3 ml Amlodipine Besylate (Norvasc) 5 mg PO DAILY [facility] Bisacodyl (Dulcolax) 10 mg PO DAILYPRN PRN PRN Reason: Constipation Carvedilol (Coreg) 25 mg PER TUBE BID [facility] Last Admin: 09/15/17 08:34 Dose: 25 mg Famotidine (Pepcid) 20 mg PER TUBE BID [facility] Last Admin: 09/15/17 10:42 Dose: 20 mg Hydralazine HCl (Apresoline) 10 mg SLOW IVP Q4H PRN PRN Reason: Hypertension Last Admin: 09/14/17 16:40 Dose: 10 mg Hydralazine HCl (Apresoline) 50 mg PER TUBE TID [facility] Last Admin: 09/15/17 08:34 Dose: 50 mg Magnesium Sulfate 1 gm/ Sodium (Chloride) 102 mls @ 102 mls/hr IV PRN PRN PRN Reason: MAG LEVEL 1.4 - 2.0 Magnesium Sulfate 2 gm/ Device 100 mls @ 100 mls/hr IVPB ASDIR PRN PRN Reason: MAGNESIUM < 1.4 Labetalol HCl (Normodyne) 10 mg SLOW IVP Q2H PRN PRN Reason: SBP > 150 or DBP > 90 Last Admin: 09/12/17 02:55 Dose: 2 ml Magnesium Hydroxide (Milk Of Magnesium) 30 ml PO Q8H PRN PRN Reason: Constipation Mineral Oil/White Petrolatum (Lacri-Lube Ointment) 0 gm EA EYE PRN PRN PRN Reason: Dry Eyes Ccu Electrolyte (Replacement Protocol) 0 each FS PRN PRN PRN Reason: FOR ELECTROLYTE REPLACEMENT Nystatin (Mycostatin) 500,000 units SSW QID [facility] Last Admin: 09/15/17 08:34 Dose: 500,000 units Ondansetron HCl (Zofran) 4 mg IVP Q6H PRN PRN Reason: Nausea/Vomiting Sodium Chloride (Flush - Normal Saline) 10 ml IVF PRN PRN PRN Reason: Saline Flush Last Admin: 09/12/17 08:48 Dose: 10 ml
[2017-09-15] MEDS ORDERED: Amlodipine 5 MG TAB PO SCH (13:30)
[2017-09-15 14:30] VITALS: BMI 20.9
[2017-09-15 16:10] VITALS: BP 170/87; TEMP 97.7
--- NOTE | 2017-09-16 06:51 | DIS ---
DATE OF ADMISSION: 09/10/2017 DATE OF DISCHARGE: 09/15/2017 DISCHARGE DISPOSITION: Back to [facility] inpatient rehabilitation. CONDITION AT THE TIME OF DISCHARGE: Stable and improved. DISCHARGE DIAGNOSES: 1. Hypertensive urgency with labile hypertension due to recent hemorrhagic cerebrovascular accident. 2. Hemorrhagic cerebrovascular accident. 3. Aphasia secondary to hemorrhagic cerebrovascular accident. 4. Dysphagia secondary to hemorrhagic cerebrovascular accident, status post PEG tube placement last hospitalization. 5. Vaginal candidiasis. DISCHARGE MEDICATIONS: Trazodone 50 mg per tube at bedtime, hydralazine 50 mg per tube t.i.d., Haldo l 0.5 mg per tube at bedtime, DuoNebs as needed, Milk of Magnesia as needed, Coreg 25 mg per tube b.i .d., artificial tears p.r.n., Norvasc 5 mg daily, and acyclovir 400 mg p.o. b.i.d. for a total of 7 d ays. CONSULTATIONS: Include, 1. Pulmonary and Critical Care, Dr. Loredo. 2. Neurosurgery. PROCEDURES DONE IN THE HOSPITAL: Include: 1. CT scan of the abdomen and pelvis upon presentation, which is limited given the motion degradatio n. No acute abnormalities noticed. 2. CT scan of the brain, which is once again showing stable intracranial hemorrhage without any new intracranial hemorrhage. 3. Chest x-ray which was unremarkable. HISTORY OF PRESENT ILLNESS: Ms. Ramirez is an unfortunate 67-year-old female with recent a dmission to our facility last month with hemorrhagic CVA. At that time, [facility] after Neurosurgery has discharged her with PEG tube placement. She was brought in for complaints of uncontrolled hypertension and altered mental status. Her blood pressure upon pres entation was 221/106. CT scan was unremarkable. She was admitted to the critical care unit for hype rtensive emergency and Neurosurgery was consulted. HOSPITAL COURSE: The patient was admitted and restarted on her medications. She was seen by Dr. Saul coates from Critical Care as well as . Neurosurgery recommended blood pressure management. There was no evidence of extension of the hemorrhage or edema. The patient was continued on a serial neur ological examination with stroke team evaluations. She actually did very well and had improvement in her symptoms when compared to her last hospitalization. We had some hard time controlling her blood pressure. Her blood pressure was very labile. Medicatio ns were adjusted and eventually she was stable on increasing the Coreg dose to 25 b.i.d., along with hydralazine continuation to t.i.d. in addition of Norvasc. Clonidine was discontinued as the patient was having some difficulty with bradycardia, which was self-resolving. If needed, clonidine can sti ll be used as a p.r.n. medication for hypertensive urgencies. There was some difficulty in discharging this patient back because of the blood pressure, but Dr. Linda guzmán at the rehab has graciously accepted the patient back. At this time, her blood pressure is stable and she is hemodynamically stable. She will continue to work with OT, PT and speech therapy over the re. PEG tube was continued and she tolerated it very well. It was in fact able to be increased to 5 5 mL per hour.
[2017-09-16] MEDS ORDERED: Amlodipine 5 MG TAB PO SCH (09:00)
--- NOTE | 2017-10-03 13:26 | EKG ---
Test Reason : Blood Pressure : / mmHG Vent. Rate : 080 BPM Atrial Rate : 080 BPM P-R Int : 116 ms QRS Dur : 076 ms QT Int : 428 ms P-R-T Axes : 074 071 064 degrees QTc Int : 493 ms Normal sinus rhythm with sinus arrhythmia Prolonged QT Abnormal ECG Confirmed by BRIDGER READ ([id number]), technical editor JENNY KEITH ([id number]) on 10/03/2017 1:26:20 PM Referred By: Confirmed By:BRIDGER READ
== END 2017-09-15 16:40 | DRG 305 ==
LOC: ERS 17:32 → CCU 23:05 → 2SE 09-11 17:15
PROVIDERS: ADMIT Internal Medicine; ATTEND Internal Medicine
DX: I16.1 Hypertensive emergency (principal); I69.151 Hemiplegia and hemiparesis following nontraumatic intracerebral hemorrhage affecting right dominant side; I69.120 Aphasia following nontraumatic intracerebral hemorrhage; R13.12 Dysphagia, oropharyngeal phase; Z93.1 Gastrostomy status; B37.3 Candidiasis of vulva and vagina; I16.0 Hypertensive urgency; I10 Essential (primary) hypertension; I69.191 Dysphagia following nontraumatic intracerebral hemorrhage; Z91.14 Patient's other noncompliance with medication regimen; F15.11 Other stimulant abuse, in remission; Z87.891 Personal history of nicotine dependence; Z88.1 Allergy status to other antibiotic agents; Z88.5 Allergy status to narcotic agent; Z88.0 Allergy status to penicillin; Z88.2 Allergy status to sulfonamides; B00.9 Herpesviral infection, unspecified; Z95.828 Presence of other vascular implants and grafts
CPT/HCPCS: 36415; 51702; 70450; 71010; 74177; 80048; 80053; 82550; 83605; 83690; 85007; 85027; 87040; 87086; 87480; 87510; 87660; 90471; 90682; 93005; 94640; 94760; 96374; 96375; G0008; G8978-GP-CN; G8979-GP-CM; G8987-GO-CM; G8988-GO-CK; G9159-GN-CN; G9160-GN-CL; J0360; J2270; J2405; Q2036

== ENCOUNTER 2017-09-21 16:48 | Emergency (ER) | payer MEDICARE | END 2017-09-21 18:10 | LOC: ERS 16:48 | DX: Z43.1 Encounter for attention to gastrostomy (principal); I10 Essential (primary) hypertension; Z86.73 Personal history of transient ischemic attack (TIA), and cerebral infarction without residual deficits; F17.210 Nicotine dependence, cigarettes, uncomplicated ==

== ENCOUNTER 2017-09-22 18:14 | Inpatient (IN) | payer MEDICARE ==
[2017-09-22] MEDS ORDERED: Ondansetron HCl/PF 4 MG/2 ML Vial IVP PRN (19:39)
[2017-09-22] MEDS ORDERED: Lacri-Lube Opth Oint 3.5 GM TUBE EA EYE PRN (19:39)
[2017-09-22] MEDS: Sodium Chloride 0.9% 1,000 ML IV SCH (20:08)
[2017-09-22] MEDS: Famotidine/PF 20 mg/2ml Vial SLOW IVP SCH (20:14)
[2017-09-22 20:25] LABS: #Eosinphils 0.1 thou/uL (0.0-0.7); #Lymphocytes 1.6 thou/uL (1.20-3.40); #Monocytes 0.6 thou/uL (0.11-0.59); %Basophils 0.5 % (0.0-1.0); %Eosinophils 1.3 % (0.0-10.0); %Lymphocytes 25.7 % (21.0-51.0); %Monocytes 9.3 % (0.0-10.0); Mean Platelet Volume 6.9 fL (7.4-10.4); White Blood Cell (WBC) Count 6.4 thou/uL (4.8-10.8)
[2017-09-22 20:47] LABS: ALT (SGPT) 14 U/L (8-55); AST (SGOT) 19 U/L (5-34); Alkaline Phosphatase 116 U/L (40-150); Anion Gap 16 mmol/L (10-20); BUN (Urea Nitrogen) 26 mg/dL (9.8-20.1); Bilirubin, Total 0.4 mg/dL (0.2-1.2); Calc. Creatinine Clearance 0 mL/min (70-130); Calcium 9.2 mg/dL (7.8-10.44); Carbon Dioxide 23 mmol/L (23-31); Chloride 100 mmol/L (98-107); Estimated GFR-MDRD 65; Globulin 3.3 g/dL (2.4-3.5); Protein, Total 6.7 g/dL (6.0-8.3)
[2017-09-22 21:19] VITALS: BMI 20.7
--- NOTE | 2017-09-22 21:48 | CT ---
CT OF THE ABDOMEN AND PELVIS WITH IV CONTRAST: Date: 09-22-17 Provided Clinical History: Abdominal pain. FINDINGS: Comparison 09-10-17. Visualized lung bases are free of significant opacity. Emphysematous changes agai n seen. The solid abdominal organs demonstrate no acute abnormality. Prominence of the common duct and intrah epatic biliary system is noted, presumably on the basis of post cholecystectomy status. There is no bowel dilatation, inflammatory fat stranding, free fluid or free air apparent. The previo usly seen percutaneous nephrostomy catheter is no longer evident. Atherosclerosis is noted involving the abdominal aorta and its branches. There is conspicuous colonic fecal retention suggesting constipation. The osseous structures demonstrate no concerning osteoblastic or osteolytic lesions. A Ivey catheter is noted in the urinary bladder. IMPRESSION: 1. Prominence of the intrahepatic and extrahepatic biliary system likely on the basis of patient age and post cholecystectomy status. Correlation with laboratory values is recommended to exclude biliary obstructive change. 2. Findings suggest constipation. POS: [facility]
--- NOTE | 2017-09-22 21:49 | RAD ---
PORTABLE CHEST: Date: 09-22-17 Provided Clinical History: Fever. FINDINGS: Comparison is made with the study dated 09-10-17. Cardiac and mediastinal silhouette is unchanged in appearance. There is no definite focal consolidati on, pleural fluid or pneumothorax apparent. Contrast material is seen within the renal collecting sys tems from recent CT examination. IMPRESSION: No evidence for an acute cardiopulmonary process. POS: [facility]
--- NOTE | 2017-09-22 23:34 | HP ---
DATE OF ADMISSION: 09/22/2017 REASON FOR ADMISSION: Possible peritonitis, PEG tube insertion. HISTORY OF PRESENTING ILLNESS: Please note majority of this history is obtained by my talking to patient's who is here at bedside, nurse practitioner, Ms. Nelson at [facility] and prior records, as patient has significant cognitive deficits and cannot contribute in a meaningful way for history and physical. Per at bedside, patient had aneurysm with stroke on 09/02/2017. Dr. Ferrer evacuated her hematoma/ surgery was done and she was hospitalized for a week. She was later discharged to rehabilitation and was readmitted within 24 hours for uncontrolled hypertension. She also had PEG tube placed during her 3 days of stay and was sent back to rehabilitation. She apparently pulled her PEG tube yesterday. She was brought to the emergency room, where a Ivey catheter was inserted and was asked to go see, Dr. Carlyle Manzano for gastroenterology in his office. Her Ivey catheter was not present when she went to see nurse practitioner at [facility] this afternoon. The track for the PEG tube was closed and patient questionable signs of peritonitis and was sent here for direct admit. The Gastroenterology team also wanted a CAT scan to be done prior to replacing the PEG tube in the morning by Dr. Manzano, emr trainer. PAST MEDICAL AND SURGICAL HISTORY: Hemorrhagic CVA with cerebellar hemorrhage and prior suboccipital craniotomy, hypertension, dysphagia due to hemorrhagic CVA. Patient had right frontal ventriculostomy, prior history of methamphetamine and tobacco abuse, PEG tube for dysphagia, appendectomy, right inguinal hernia repair, hysterectomy, tonsillectomy, surgery for deviated nasal septum. PERSONAL HISTORY: Currently does not abuse alcohol or drugs. Does not smoke at present, as she is in rehabilitation, but prior to being hospitalized in August, the patient was abusing opioids and tobacco. Family history is positive for hypertension. ALLERGIES: PENICILLIN, SULFA. KEFLEX, AND MORPHINE. CURRENT MEDICATIONS: Patient is on acyclovir 400 mg twice daily, DuoNebs q.6 hourly, Norvasc 5 mg daily, Tegretol 100 mg twice daily, carvedilol 25 mg twice daily, clonidine 0.1 mg q.6 hourly p.r.n., Haldol 0.5 mg p.o. at bedtime, hydralazine 75 mg 3 times daily, multivitamin 1 tab once daily, trazodone 50 mg at bedtime. REVIEW OF SYSTEMS: Cannot be obtained as patient is not oriented. PHYSICAL EXAMINATION: GENERAL: Patient is a 67-year-old female who is currently not in any acute distress. VITAL SIGNS: Blood pressure 150/86, pulse 70 per minute, respiratory rate 18 per minute, temperature 98.2 degrees Fahrenheit, saturating 93% on room air. NECK: Supple, no elevated JVD. HEENT: Extraocular muscles intact. Pupils reacting to light. Oral cavity mucous membranes are moist. No exudates or congestion. CARDIOVASCULAR SYSTEM: S1, S2 heard. Regular rhythm. RESPIRATORY SYSTEM: Air entry 1+ bilateral. Scattered rhonchi plus bilateral. ABDOMEN: Soft, bowel sounds heard. Her PEG insertion site, there is a skin slit seen. No obvious purulence seen. No rigidity or guarding. Bowel sounds are heard. EXTREMITIES: No peripheral edema or calf tenderness. Patient seems to have right hemiparesis. VASCULAR SYSTEM: Peripheral pulses 1+ bilateral. No ischemic ulcerations or gangrene. CENTRAL NERVOUS SYSTEM: Patient has right hemiparesis, which appears to be chronic. She is still wheelchair bound and has not been ambulating per who is here at bedside, but she is slowly improving with strength in all 4 extremities per . PSYCHIATRIC SYSTEM: No obvious hallucinations or delusions at present seen. LABORATORY DATA AND X-RAY FINDINGS: The CBC done shows white count of 6, H&H 11 and 33, platelet count 340 with 63% neutrophils. Patient's comprehensive metabolic panel is currently pending and a chest x-ray is pending as well. CLINICAL IMPRESSION AND PLAN: The patient will be admitted to medical floor for suspicion of possible peritonitis with her recently pulling her PEG tube. Also her PEG tube tract was closed per Gastroenterology. We will consult Dr. Carlyle Manzano, emr trainer for replacement of PEG in the morning if her CAT scan is benign. She will be on normal saline at 70 mL per hour. She will be n.p.o. until such time. DuoNeb q.6 hourly. She will be on Lovenox 40 mg subcutaneous daily for deep venous thrombosis prophylaxis. Continue to closely monitor her on medical floor. Code status was discussed with patient's at bedside and he wants her to be a DNR. SETH
[2017-09-22] MEDS: Piperacillin/Tazobactam 4.5 GM in Sodium Chloride 0.9% 100 ML IVPB SCH (23:47)
[2017-09-23 04:37] LABS: #Eosinphils 0.1 thou/uL (0.0-0.7); #Lymphocytes 0.7 thou/uL (1.20-3.40); #Monocytes 0.1 thou/uL (0.11-0.59); #Neutrophils 6.4 thou/uL (1.40-6.50); %Basophils 0.2 % (0.0-1.0); %Eosinophils 0.9 % (0.0-10.0); %Lymphocytes 9.2 % (21.0-51.0); %Monocytes 0.7 % (0.0-10.0); Hematocrit 33.4 % (36.0-47.0); Mean Platelet Volume 7.4 fL (7.4-10.4); Red Blood Cell (RBC) Count 3.51 mill/uL (4.20-5.40); White Blood Cell (WBC) Count 7.1 thou/uL (4.8-10.8)
[2017-09-23 04:47] LABS: Anion Gap 15 mmol/L (10-20); BUN (Urea Nitrogen) 28 mg/dL (9.8-20.1); Calc. Creatinine Clearance 42 mL/min (70-130); Calcium 8.8 mg/dL (7.8-10.44); Carbon Dioxide 21 mmol/L (23-31); Chloride 102 mmol/L (98-107); Estimated GFR-MDRD 57
[2017-09-23] MEDS ORDERED: Dextrose 50% Abboject 50 ML SYRINGE SLOW IVP SCH (05:15)
[2017-09-23] MEDS: Piperacillin/Tazobactam 4.5 GM in Sodium Chloride 0.9% 100 ML IVPB SCH ×3 (05:31→18:23)
[2017-09-23] MEDS ORDERED: hydrALAZINE 20 MG/ML VIAL SLOW IVP PRN (08:43)
[2017-09-23] MEDS ORDERED: Labetalol HCl 100 MG/20 ML VIAL SLOW IVP PRN (08:43)
[2017-09-23] MEDS: Enoxaparin Sodium 40 MG/0.4 ML SYRINGE SC SCH ×2 (08:56→09:02)
[2017-09-23] MEDS: Famotidine/PF 20 mg/2ml Vial SLOW IVP SCH ×2 (08:56→20:54)
[2017-09-23] MEDS: Sodium Chloride 0.9% 1,000 ML IV SCH ×2 (10:43→12:38)
[2017-09-23] MEDS ORDERED: Propofol 200 MG/20 ML VIAL ONE (11:41)
[2017-09-23] MEDS ORDERED: Lidocaine 1% PF 5 ML VIAL ONE (11:41)
--- NOTE | 2017-09-23 12:16 | CON ---
DATE OF CONSULTATION: 09/23/2017 REASON FOR CONSULTATION: Dysphagia and PEG tube replacement. CONSULTING PHYSICIAN: Vladimir Menendez M.D. HISTORY OF PRESENT ILLNESS: The patient is a 67-year-old female with past medical history of hypertension, methamphetamine, and tobacco abuse, and recent hemorrhagic CVA with cerebellar hemorrhage with suboccipital craniotomy and resulting dysphagia presenting with complaints of PEG tube malfunction. She was recently discharged from the hospital after being treated extensively for her hemorrhagic CVA and [facility] to undergo rehabilitation for her stroke. However, within 24 hours after being at that particular facility, she was readmitted back to the hospital for hypertensive urgency at which point a PEG tube was placed on 09/07/2017. She was rereleased back to [facility] for further rehabilitation. However, on , the PEG tube was inadvertently removed while at [facility]. She was subsequently transferred to [facility] where a Ivey tube was placed within the PEG tube stoma with instructions to follow with GI for a possible replacement of PEG tube. She was subsequently seen in [facility] consultants on 09/22/2017, but the Ivey catheter was not present at the time of initial evaluation and the PEG tube tract appeared closed with no ability to advance any sort of catheter at that time. Given the recent removal of the PEG tube, she was subsequently transferred to [facility] for emergent CT for concerns of peritonitis with possible General Surgery consultation if present. Today, she appears to be doing well with no acute distress. Per the patient's , she is unable to contribute any further history due to relatively aphasic speech and unintelligible speech. PAST MEDICAL HISTORY: Hemorrhagic CVA with cerebral hemorrhage, suboccipital craniotomy, hypertension, dysphagia due to hemorrhagic CVA. PAST SURGICAL HISTORY: Right frontal ventriculostomy, PEG tube placement on 12/2016, appendectomy, right inguinal hernia repair, hysterectomy, tonsillectomy , surgery for deviated nasal septum. OUTPATIENT MEDICATIONS: Acyclovir 400 mg twice daily, DuoNebs q.6 hourly, Norvasc 5 mg daily, Tegretol 100 mg twice daily, carvedilol 25 mg twice daily, clonidine 0.1 mg q.6 hours p.r.n., Haldol 0.5 mg at bedtime, hydralazine 75 mg 3 times daily, multivitamin, and trazodone 50 mg at bedtime. INPATIENT MEDICATIONS: Reviewed. REVIEW OF SYSTEMS: A complete 12 category review of systems was obtained and negative because the patient is unable to contribute at this time. PHYSICAL EXAMINATION: VITAL SIGNS: Temperature 99.9, pulse 74, blood pressure 188/94, respiratory rate 20, satting 92% on 2 liters nasal cannula. GENERAL: No acute distress, alert and oriented only to self. NECK: Supple, no elevated JVD. HEENT: Pupils are equal and round, and reactive to light. Oral cavity moist with some crusting along the lips. CARDIOVASCULAR: Regular rate and rhythm with no discernible murmurs, gallops, or rub. RESPIRATORY: Scattered rhonchi auscultated in all lung morrissey, but cleared somewhat with coughing. ABDOMEN: Soft, nontender, nondistended, normoactive bowel sounds. Prior PEG site was noted in the left upper quadrant with almost complete closure of the PEG stoma itself. EXTREMITIES: No cyanosis, clubbing or edema. The patient does seem to have contractures with right hemiparesis. VASCULAR: Peripheral pulses 1+ bilaterally. LABORATORY DATA: CBC with white count of 7.1, hemoglobin 11.1, hematocrit 33.4 , and platelets 270. Chemistry with sodium of 134, potassium 3.7, chloride 102 , carbon dioxide 21, BUN 28, and creatinine 0.98. IMAGING: CT of the abdomen and pelvis obtained on 09/22/2017. There is no bowel dilatation, inflammatory fat stranding, free fluid or free air apparent. The previously seen percutaneous nephrostomy catheter was no longer evident. There is conspicuous colonic fecal retention suggesting constipation. ASSESSMENT AND PLAN: The patient is a 67-year-old female with past medical history of hypertension and hemorrhagic cerebrovascular accident, status post percutaneous endoscopic gastrostomy tube placement for significant dysphagia sustained after her cerebrovascular accident. Dysphagia. The patient presenting with significant dysphagia requiring the placement of a percutaneous endoscopic gastrostomy tube on 09/07/[address] Harper. However, after the patient was transferred back to [facility], this percutaneous endoscopic gastrostomy tube was inadvertently removed on 09/21/2017 with the patient going to the ER and a Ivey catheter placed within the stoma itself. The patient was subsequently seen in the GI Clinic on 09/22/2017, and given concern of premature removal of the percutaneous endoscopic gastrostomy tube, she was subsequently transferred to [facility] for a stat CT abdomen and pelvis for concerns of peritonitis. CT scan obtained on 09/22/2017 did not show any evidence of peritonitis or inflammatory fat stranding consistent with active infection within the peritoneum. Her labs show a normal white blood cell count further lending towards absence of peritonitis. At this time, she continues to have significant dysphagia and we will need replacement of her percutaneous endoscopic gastrostomy tube. We will put her on the schedule for today to have the percutaneous endoscopic gastrostomy tube replaced, but we will need an EGD with PEG placement. We will continue to follow while the patient is inpatient. Please call with any questions. [facility]
--- NOTE | 2017-09-23 12:27 | OP ---
DATE OF PROCEDURE: 09/23/2017 DESCRIPTION OF PROCEDURE: Esophagogastroduodenoscopy with percutaneous endoscopically placed gastrostomy tube. DESCRIPTION OF PROCEDURE: After obtaining consent from the patient's surrogate with risks and benefits discussed including risk of infection, bleeding, reaction to anesthesia and pain, informed consent was obtained at which point the patient was taken to the endoscopy suite and via anesthesia support, deep sedation was induced. The endoscope was then passed through the mouth into the esophagus, stomach and small intestine with careful examination of the mucosa seen upon withdrawal. FINDINGS: Esophagus: Normal appearing mucosa was seen in the proximal, mid and distal esophagus. The diaphragmatic pinch was seen at approximately 35 cm past the incisors with the GE junction well seen at 33 cm denoting a 2 cm hiatal hernia. Stomach: Normal appearing mucosa was seen in the fundus antrum cardia and incisura. A 2-3 mm ulceration was seen along the greater curvature in the body of the stomach consistent with prior PEG tube site location. There was no surrounding erythema or mucosal breakdown from the prior PEG tube site. Duodenum: Normal appearing mucosa was seen in the duodenal bulb and second portion of the duodenum with no erosions, ulcerations or mass lesions. At this point in the procedure, using proper technique, the site of new PEG tube site insertion was determined by 1:1 compression and transillumination with good results on both of these procedures. The site of PEG tube insertion was actually in the same place as the prior PEG tube. At which point using 1% lidocaine, the medication was instilled in a wheal formation along the prior PEG or stoma location, then inverted perpendicular to the skin with the lidocaine instilled along the tract into the stomach. Using an aspiration needle, it was then guided along the prior PEG site location and into the body of the stomach. Once inside the body of the stomach, a guidewire was advanced through the aspiration needle catheter and obtained on the other side via snare through the endoscope. The wire was then retracted through the esophagus and out through the mouth, maintaining control of the guidewire on both ends at all times. The [employer] 20 Cymraes PEG tube was then placed on the guidewire and guided through the mouth into the stomach using a push technique with approximately 2.5 cm seen at the skin. The endoscope was then advanced down into the stomach for confirmation of placement with good placement of the PEG tube noted upon visualization. All equipment was then removed with proper dressings and adapters placed on the percutaneous gastrostomy tube. IMPRESSION: 1. Prior percutaneous endoscopic gastrostomy tube site noted along the greater curvature of the stomach without mucosal breakdown. 2. Successful placement of a [employer] 20-Cymraes percutaneous endoscopic gastrostomy tube at the prior stoma location. 3. Otherwise, normal upper endoscopy. RECOMMENDATIONS: 1. Follow up with primary inpatient team. 2. Can use PEG tube immediately for medications only, would wait approximately 4 hours prior to instillation of any tube feeds per tube feed protocol and/or dietary recommendations. 3. Would conform to proper PEG tube care (including rotating the PEG tube approximately 720 degrees daily, washing the wound with running soap and water, avoiding swimming or bathing for the next 4-6 weeks. Please refrain from placing any bandages or dressings underneath the external bumper). 4. Would place abdominal binder around patient to protect the PEG tube and prevent further inadvertent removal of the PEG tube. 5. If the PEG tube is removed within 4-6 weeks, I would recommend a stat CT to determine for possible peritonitis and/or General Surgery evaluation for surgical correction. [facility]
--- NOTE | 2017-09-23 15:35 | PDOC.PN ---
- Subjective Encounter Start Date: 09/23/17 Encounter Start Time: 15:35 Ms. Casey was seen today in follow-up of displaced PEG tube. She was sleepy post procedure. No problems voiced by staff. - Objective Resuscitation Status: Resuscitation Status DNR:Do Not Resuscitate MAR Reviewed: Yes Vital Signs & Weight: Vital Signs (12 hours) Temp Pulse Resp BP Pulse Ox 09/23/17 13:02 98.7 F 76 16 129/66 92 L 09/23/17 08:55 74 09/23/17 08:00 99.9 F H 74 20 92 L 09/23/17 07:53 99.9 F H 74 20 188/94 H 92 L 09/23/17 06:39 71 18 98 09/23/17 04:05 97.6 F 71 20 136/80 98 Weight Admit Weight 103 lb Weight 103 lb I&O: 09/22/17 09/23/17 09/24/17 06:59 06:59 06:59 Intake Total 0 Output Total 750 Balance -750 Result Diagrams: 09/23/17 03:32 09/23/17 03:32 Additional Labs: Accuchecks 09/23/17 06:45 POC Glucose 160 H Phys Exam - Physical Examination HEENT: PERRLA Respiratory: no wheezing, no rales, no rhonchi, clear to auscultation bilateral Cardiovascular: RRR, no significant murmur Gastrointestinal: soft, non-tender, positive bowel sounds Musculoskeletal: edema present trace pedal edema Dx/Plan (1) PEG tube malfunction Code(s): K94.23 - GASTROSTOMY MALFUNCTION Status: Acute (2) Hypertension Code(s): I10 - ESSENTIAL (PRIMARY) HYPERTENSION Status: Acute (3) Hemorrhagic cerebrovascular accident (CVA) Code(s): I61.9 - NONTRAUMATIC INTRACEREBRAL HEMORRHAGE, UNSPECIFIED Status: Acute Comment: Recent 08/2017 - Plan * HTN- better now, will re-start her home medications via the PEG * S/p PEG tube replacement * Tube feeding can be started in 4 hours * Plan is to return to [facility] tomorrow
[2017-09-23] MEDS: hydrALAZINE 25 MG TAB PER TUBE SCH (20:53)
[2017-09-23] MEDS: Carvedilol 25 MG TAB PER TUBE SCH (20:54)
[2017-09-23] MEDS: Acyclovir 400 mg Tablet PO SCH (20:58)
[2017-09-23] MEDS ORDERED: traZODone HCl 50 MG TAB PER TUBE SCH (21:00)
[2017-09-23] MEDS: Acetaminophen 650 MG Suppository PR PRN (21:10)
[2017-09-24] MEDS: Piperacillin/Tazobactam 4.5 GM in Sodium Chloride 0.9% 100 ML IVPB SCH ×3 (00:05→12:53)
[2017-09-24] MEDS: Sodium Chloride 0.9% 1,000 ML IV SCH ×2 (00:21→05:26)
[2017-09-24] MEDS: Famotidine/PF 20 mg/2ml Vial SLOW IVP SCH (08:42)
[2017-09-24] MEDS: Acyclovir 400 mg Tablet PO SCH (08:42)
[2017-09-24] MEDS: Carvedilol 25 MG TAB PER TUBE SCH (08:54)
[2017-09-24] MEDS: Enoxaparin Sodium 40 MG/0.4 ML SYRINGE SC SCH (08:55)
[2017-09-24] MEDS: hydrALAZINE 25 MG TAB PER TUBE SCH ×2 (08:55→14:25)
[2017-09-24] MEDS ORDERED: Amlodipine 5 MG TAB PO SCH (09:00)
[2017-09-24] MEDS: Acetaminophen 650 MG Suppository PR PRN (12:55)
--- NOTE | 2017-09-24 13:57 | PDOC.PN ---
- Subjective Encounter Start Date: 09/24/17 Encounter Start Time: 13:55 Ms. Casey was seen today in follow-up after dislodged PEG tub. She has had this replaced. She is awake and alert, and indicates by nodding that she feels ok. - Objective Resuscitation Status: Resuscitation Status DNR:Do Not Resuscitate MAR Reviewed: Yes Vital Signs & Weight: Vital Signs (12 hours) Temp Pulse Resp BP Pulse Ox 09/24/17 11:45 64 16 96 09/24/17 08:56 151/80 H 09/24/17 08:55 61 09/24/17 08:42 61 09/24/17 08:00 98.1 F 61 18 98 09/24/17 07:42 98 F 61 18 123/74 95 09/24/17 07:13 61 18 96 09/24/17 04:31 98 09/24/17 04:00 97.9 F 63 20 137/82 97 Weight Admit Weight 103 lb Weight 103 lb I&O: 09/23/17 09/24/17 09/25/17 06:59 06:59 06:59 Intake Total 0 1500 100 Output Total 750 250 Balance -750 1250 100 Result Diagrams: 09/23/17 03:32 09/23/17 03:32 Additional Labs: Accuchecks 09/23/17 16:18 POC Glucose 92 Phys Exam - Physical Examination HEENT: PERRLA Respiratory: no wheezing, no rales, no rhonchi, clear to auscultation bilateral Cardiovascular: RRR, no significant murmur Gastrointestinal: soft, non-tender, positive bowel sounds Musculoskeletal: no edema Dx/Plan (1) PEG tube malfunction Code(s): K94.23 - GASTROSTOMY MALFUNCTION Status: Acute (2) Hypertension Code(s): I10 - ESSENTIAL (PRIMARY) HYPERTENSION Status: Acute (3) Hemorrhagic cerebrovascular accident (CVA) Code(s): I61.9 - NONTRAUMATIC INTRACEREBRAL HEMORRHAGE, UNSPECIFIED Status: Acute Comment: Recent 08/2017 - Plan * PEG Tube dislodged- this has been replaced * She is tolerating tube feedings * HTN- blood pressure is stable * She can be transferred back to the ID.
[2017-09-24 16:35] VITALS: BP 93/55; TEMP 98.4
--- NOTE | 2017-09-24 18:37 | DIS ---
DATE OF ADMISSION: 09/22/2017 DATE OF DISCHARGE: 09/24/2017 DISCHARGE DISPOSITION: [facility] to [facility] DISCHARGE DIAGNOSES: 1. Dislodged PEG tube. 2. 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 3. Hypertension. 4. Chronic dysphagia secondary to the CVA status post PEG placement. DISCHARGE MEDICATIONS: These are the same as that on admission and include trazodone 50 mg at bedtim e, simethicone 80 mg t.i.d., MiraLax 17 grams daily, Theragran-M 1 tablet daily, Milk of Magnesia 30 mL q.8. p.r.n., loperamide 2 mg q.6 p.r.n., DuoNeb q.6. as needed, hydralazine 75 mg t.i.d., paliperi done 0.5 mg per tube at bedtime, guaifenesin 200 mg q.4 hours as needed, Benadryl 25 mg q.6 as needed , clonidine 0.1 mg q.4 hours as needed, carvedilol 25 mg per tube twice a day, Tegretol 100 mg per tu be twice a day, calcium carbonate 1000 mg q.i.d. as needed, bisacodyl 10 mg per rectum p.r.n., amlodi pine 5 mg per tube daily, artificial tears as needed, acyclovir 400 mg twice a day and it was for a t otal of 14 days and Tylenol 500 mg q.4 as needed. PROCEDURES DONE DURING ADMISSION: The patient had a CT scan of the abdomen and pelvis that showed pr ominence of the intrahepatic and extrahepatic biliary system, likely on the basis of the patient's ag e and post-cholecystectomy status. There were some findings consistent with constipation. The patie nt also had the replacement of the percutaneous gastrostomy tube. CODE STATUS: DNR. ALLERGIES: PEANUTS. HOSPITAL COURSE: Ms. Casey is a pleasant 67-year-old female who [facility] after she had dislodged her PEG tube and there was some concerns that there was a possible peritonit is. She was admitted and CT scan was obtained that was negative for any evidence of infection or abs cess. The PEG tube was replaced by GI and she had an uneventful postoperative course the PEG tube wi th low functioning prior to discharge and she was therefore [facility]20 17.
--- NOTE | 2017-09-24 23:33 | DIS ---
DATE OF ADMISSION: 09/22/2017 DATE OF DISCHARGE: 09/24/2017 DISCHARGE DISPOSITION: Back to the assisted facility. DISCHARGE DIAGNOSES: 1. Malfunctioning PEG tube. 2. History of hemorrhagic cerebrovascular accident with cerebellar hemorrhage. 3. Hypertension. DISCHARGE MEDICATIONS: Include trazodone 50 mg per tube at bedtime, simethicone 80 mg t.i.d., MiraLa x 17 g daily, Theragran-M 1 tablet daily, Milk of Magnesia 30 mL q.8, loperamide 2 mg p.r.n., hydrala zine 75 mg per tube t.i.d., DuoNebs q.6 hours as needed, haloperidol 0.5 mg at bedtime, guaifenesin 2 00 mg q.4 hours as needed, Benadryl 25 mg q.6 hours as needed, clonidine 0.1 mg per tube q.4 hours, C oreg 25 mg twice daily, Tegretol 100 mg twice a day, Tums 1000 mg q.i.d. as needed, Dulcolax 10 mg pe r rectum daily, Zovirax 400 mg q.12 hours, amlodipine 5 mg per tube daily, lube p.r.n. PROCEDURES DONE DURING ADMISSION: The patient had a CT scan of the abdomen and pelvis showing promin ence of the intrahepatic and extrahepatic biliary system and findings suggestive of constipation. Th e patient also had the replacement of the PEG tube. CODE STATUS: DNR. ALLERGIES: PEANUTS. HOSPITAL COURSE: Ms. Ramirez is a 67-year-old female who was noted to have a malfunctioning PEG tube at the nursing facility. She was transferred to our facility to have this replaced. This was done by Dr. Manzano. The patient had an uneventful postoperative course and was subsequently able to be tra nsitioned back to the assisted facility.
== END 2017-09-24 16:24 | DRG 395 ==
LOC: T4-B 18:14
PROVIDERS: ADMIT Internal Medicine; ATTEND Internal Medicine
PROC: 0DH63UZ Insertion of Feeding Device into Stomach, Percutaneous Approach (ICD-10-PCS; principal; 2017-09-23)
DX: K94.23 Gastrostomy malfunction (principal); R13.10 Dysphagia, unspecified; I69.391 Dysphagia following cerebral infarction; I10 Essential (primary) hypertension; K25.9 Gastric ulcer, unspecified as acute or chronic, without hemorrhage or perforation; K44.9 Diaphragmatic hernia without obstruction or gangrene; R41.89 Other symptoms and signs involving cognitive functions and awareness; Z88.1 Allergy status to other antibiotic agents; Z88.5 Allergy status to narcotic agent; Z88.0 Allergy status to penicillin; Z88.2 Allergy status to sulfonamides; Z91.010 Allergy to peanuts; Z66 Do not resuscitate; Y92.129 Unspecified place in nursing home as the place of occurrence of the external cause; Y84.9 Medical procedure, unspecified as the cause of abnormal reaction of the patient, or of later complication, without mention of misadventure at the time of the procedure
CPT/HCPCS: 36415; 36416; 71010; 74177; 80048; 85025; 94640; 99406; G8987-GO-CL; G8988-GO-CJ; J0360; J1650; J2001; J2543; J2704; J7050; J7620; S0028

== ENCOUNTER 2017-10-23 23:07 | Emergency (ER) | payer MEDICARE ==
--- NOTE | 2017-10-24 00:16 | RAD ---
PORTABLE AP CHEST X-RAY 10/23/17 HISTORY: Productive cough for four days. COMPARISON: 09/10/17. FINDINGS: Patient is rotated to the right. The cardiac silhouette and pulmonary vasculature are within normal l imits. There is a nodular density overlying the lateral right upper lung zone which was also present on the study of 09/22/17. This overlies rib in this region, and I am unsure if this is related to myranda cified granuloma or small pulmonary nodule. The lungs are otherwise clear. Vascular calcifications se en in the thoracic aorta. There is osteopenia. IMPRESSION: Nodular density overlying the lateral right upper lobe also seen on prior exam. This may represent a calcified granuloma, but this does overlie the posterior and anterior rib in this region and a pulmon tracy nodule cannot be entirely excluded. Nonemergent CT scan thorax is recommended for further evaluat ion. Lungs are otherwise clear. POS: [facility]
== END 2017-10-24 01:17 | disposition home or self-care (01) ==
LOC: ERS 23:07
DX: R05 Cough (principal); I10 Essential (primary) hypertension; F17.210 Nicotine dependence, cigarettes, uncomplicated; Z86.73 Personal history of transient ischemic attack (TIA), and cerebral infarction without residual deficits
CPT/HCPCS: 71045

== ENCOUNTER 2017-11-01 23:06 | Emergency (ER) | payer MEDICARE ==
--- NOTE | 2017-11-01 23:56 | CT ---
EXAM CT CERVICAL SPINE WITHOUT CONTRAST 11/01/17 HISTORY: Status post fall. senior living patient. Posttraumatic neck pain. Previous history of intracranial hem orrhage. COMPARISON: 09/02/17. TECHNIQUE: CT cervical spine is performed without contrast. Reformatted images are submitted for interpretation. FINDINGS: Occipital craniotomy is identified. There is a hypodensity at the surgical site, extending inferiorly on the posterior neck soft tissues which is presumed to represent postsurgical change. Evaluation is incomplete. Lateral masses of C1 and C2 articulate appropriately. Odontoid process is intact. Appropriate articul ation of the intra-articular facets. Straightening of the normal cervical lordosis likely due to patient position, muscle spasm, or cervic al collar. Limited evaluation for ligamentous injury due to technique. Cervical spine vertebral body height is maintained. No fracture. Upper mediastinum is unremarkable. L lidia apices demonstrate emphysematous change. No high grade central canal stenosis or high grade arturo inal narrowing. IMPRESSION: 1. No cervical spine fracture. 2. Postsurgical changes with hypodensity in the posterior scalp and neck soft tissues. Different ial considerations include a postoperative fluid collection or possible pseudomeningocele. POS: [facility]
--- NOTE | 2017-11-02 | CT ---
NONCONTRAST HEAD CT: 11/01/17 HISTORY: group home patient. Previous intracranial hemorrhage. Previous surgical intervention. Posttraumati c pain. COMPARISON: 09/10/17. TECHNIQUE: Noncontrast head CT is performed from skull base through skull vertex. FINDINGS: No parenchymal hemorrhage. No extra-axial hematoma. No midline shift. Basilar cisterns are patent. St able configuration of ventricular system. Supratentorial white matter hypodensities due to chronic sm all vessel ischemic change. There is malacic and gliotic change involving both cerebellar hemispheres. Occipital craniotomy defec t is identified. There is hypoattenuation of the surgical site as well as in the posterior midline so ft tissues which may represent postsurgical fluid collection. The possibility of a pseudomeningocele or CSF fluid collection cannot be excluded. No calvarial fractures. Adequate aeration of the sinuses and mastoid air cells. IMPRESSION: 1. No intracranial posttraumatic sequela. 2. Age appropriate atrophy and chronic small vessel ischemic change of the white matter. 3. Postsurgical changes as described above. Hypodensity may represent postsurgical fluid versus a CSF collection including a possible pseudomeningocele. Correlate clinically. POS: [facility]
== END 2017-11-02 01:56 | disposition home or self-care (01) ==
LOC: ERS 23:06
DX: S09.90XA Unspecified injury of head, initial encounter (principal); I10 Essential (primary) hypertension; F17.210 Nicotine dependence, cigarettes, uncomplicated; Z86.73 Personal history of transient ischemic attack (TIA), and cerebral infarction without residual deficits; Z79.899 Other long term (current) drug therapy; W06.XXXA Fall from bed, initial encounter
CPT/HCPCS: 70450; 72125; 99406

== ENCOUNTER 2017-11-06 12:35 | Outpatient (CLI) | payer MEDICARE ==
[2017-11-06] MEDS ORDERED: Iopamidol 370 76% 100 ML VIAL ONE (13:04)
== END 2017-11-06 12:36 | disposition home or self-care (01) ==
LOC: BICCT 12:35
PROVIDERS: ATTEND Internal Medicine
DX: R91.1 Solitary pulmonary nodule (principal); J44.9 Chronic obstructive pulmonary disease, unspecified; R91.8 Other nonspecific abnormal finding of lung field
CPT/HCPCS: 71260

== ENCOUNTER 2017-11-18 11:08 | Emergency (ER) | payer MEDICARE ==
[2017-11-18] MEDS ORDERED: Lidocaine 1% w/Epinephrine 1:100K 20 ML VIAL ONE (12:10)
--- NOTE | 2017-11-18 12:41 | CT ---
CT BRAIN WITHOUT CONTRASTS: Comparison: 11-01-17 History: Frequent falls and incontinence. Trauma to the head. Technique: Multiple contiguous axial images were obtained in a CT of the brain without contrast. FINDINGS: This exam is limited secondary to motion artifact. Post-surgical changes are seen in the posterior fo ssa with removal of the calvarium in this location. The post-surgical changes are stable compared to the prior examination. There is no evidence of hydrocephalus, intracranial hemorrhage, or extraaxial fluid collections. There are a few scattered hypodensities in the subcortical and periventricular whi te matter, likely secondary to small vessel ischemic disease. The paranasal sinuses and mastoid air cells are well aerated. IMPRESSION: No evidence of acute intracranial abnormality. POS: [facility]
--- NOTE | 2017-11-18 12:50 | CT ---
CT OF THE CERVICAL SPINE WITHOUT CONTRAST: HISTORY: [facility] patient who fell with neck pain. Head trauma. COMPARISON: 11/01/2017 TECHNIQUE: Multiple contiguous axial images were obtained in a CT of the cervical spine without contrast. Sagit liz and coronal reformats were performed. FINDINGS: The vertebral bodies and intervertebral disks demonstrate normal height and alignment without fractur e or subluxation. No prevertebral soft tissue swelling is seen. Mild degenerative changes are prese nt. The posterior facets are well aligned. Normal alignment of the skull base with the cervical spine is seen. IMPRESSION: No evidence of acute osseous abnormality of the cervical spine. POS: [facility]
== END 2017-11-18 13:47 | disposition home or self-care (01) ==
LOC: ERS 11:08
DX: S01.81XA Laceration without foreign body of other part of head, initial encounter (principal); I10 Essential (primary) hypertension; F17.210 Nicotine dependence, cigarettes, uncomplicated; Z86.73 Personal history of transient ischemic attack (TIA), and cerebral infarction without residual deficits; Z79.899 Other long term (current) drug therapy; W18.30XA Fall on same level, unspecified, initial encounter; Y92.128 Other place in nursing home as the place of occurrence of the external cause
CPT/HCPCS: 12011; 70450; 72125; J2001

== ENCOUNTER 2018-01-19 13:06 | Outpatient (CLI) | payer MEDICARE ==
--- NOTE | 2018-01-19 14:19 | RAD ---
CHEST PA AND LATERAL 2 VIEWS: Date: 01/19/18 HISTORY: 67-year-old female with history of dyspnea. FINDINGS: Atherosclerosis of aorta with some ectasia. Increased AP dimension of the chest, consistent with some hyperinflation. Stable appearing compression fractures of the upper mid thoracic spine. Mild stable linear chronic changes in the bases with costophrenic angle blunting. IMPRESSION: Stable chronic changes. No acute intrathoracic disease. POS: [facility]
== END 2018-01-19 13:07 | disposition home or self-care (01) ==
LOC: RAD 13:06
PROVIDERS: ATTEND Internal Medicine Pulmonary Disease
DX: R06.00 Dyspnea, unspecified (principal)
CPT/HCPCS: 71046

== ENCOUNTER 2018-02-01 13:29 | Emergency (ER) | payer MEDICARE ==
[2018-02-01 13:53] LABS: Bilirubin Negative (Negative); Blood, Urine Negative (Negative); Clarity CLEAR (Clear); Glucose, Urine (Dipstick) Negative (Negative); Leukocyte Negative (Negative); Nitrite Negative (Negative); Protein, Urine (Dipstick) Trace mg/dL (Neg-Trace); Specific Gravity, Urine 1.035 (1.002-1.036); Urobilinogen 0.2 mg/dL (0.2-1.0); pH, Urine 5.5 (5.0-9.0)
[2018-02-01 14:22] LABS: #Lymphocytes 1.6 thou/uL (1.20-3.40); #Monocytes 0.6 thou/uL (0.11-0.59); %Basophils 0.5 % (0.0-1.0); %Eosinophils 0.8 % (0.0-10.0); %Lymphocytes 25.9 % (21.0-51.0); %Neutrophils 63.9 % (42.0-75.0); Hemoglobin 11.6 g/dL (12.0-16.0); Mean Corpuscular HGB CONC 33.8 g/dL (32.0-36.0); Mean Corpuscular Hemoglobin 31.7 pg (27.0-31.0); Mean Corpuscular Volume 93.6 fl (81.0-99.0); Mean Platelet Volume 7.1 fL (7.4-10.4); Platelet Count 296 thou/uL (130-400); RBC Distribution Width 16.5 % (11.5-14.5); Red Blood Cell (RBC) Count 3.65 mill/uL (4.20-5.40); White Blood Cell (WBC) Count 6.2 thou/uL (4.8-10.8)
[2018-02-01 14:37] LABS: ALT (SGPT) 13 U/L (8-55); AST (SGOT) 16 U/L (5-34); Albumin 3.8 g/dL (3.4-4.8); Alcohol Less than 10 mg/dL (Less than 10); Alkaline Phosphatase 72 U/L (40-150); Anion Gap 12 mmol/L (10-20); BUN (Urea Nitrogen) 28 mg/dL (9.8-20.1); Bilirubin, Total 0.4 mg/dL (0.2-1.2); Calc. Creatinine Clearance 0 mL/min (70-130); Calcium 9.3 mg/dL (7.8-10.44); Carbon Dioxide 22 mmol/L (23-31); Chloride 111 mmol/L (98-107); Estimated GFR-MDRD 46; Globulin 2.7 g/dL (2.4-3.5); Glucose 123 mg/dL (80-115); Potassium 3.7 mmol/L (3.5-5.1); Protein, Total 6.5 g/dL (6.0-8.3); Sodium 141 mmol/L (136-145)
--- NOTE | 2018-02-01 15:30 | CT ---
CT BRAIN: Date: 02-01-18 Provided Clinical History: Altered mental status. FINDINGS: Comparison 11-28-17. The ventricular system is unchanged in size and morphology. There is no evidence for intraperitoneal hemorrhage or mass effect. Post-operative changes involving the occipital skull are redemonstrated. T he extracranial soft tissues and osseous structures demonstrate no acute findings. IMPRESSION: No evidence for intracranial hemorrhage or mass effect. POS: [facility]
== END 2018-02-01 16:20 | disposition home or self-care (01) ==
LOC: ERS 13:29
DX: R46.1 Bizarre personal appearance (principal); I10 Essential (primary) hypertension; Z86.73 Personal history of transient ischemic attack (TIA), and cerebral infarction without residual deficits; F17.210 Nicotine dependence, cigarettes, uncomplicated; Z79.899 Other long term (current) drug therapy
CPT/HCPCS: 51701; 70450; 80053; 80307; 81003; 85025; 93005; A4353

== ENCOUNTER 2018-02-03 22:16 | Emergency (ER) | payer MEDICARE ==
[2018-02-04] MEDS ORDERED: Lidocaine 1% w/Epinephrine 1:100K 20 ML VIAL ONE (00:21)
--- NOTE | 2018-02-04 07:26 | CT ---
HEAD CT WITHOUT CONTRAST: 02/03/2018 HISTORY: Fall. Trauma. Pain. Injury. COMPARISON: 02/01/2018 TECHNIQUE: Serial axial CT imaging obtained at 5 mm intervals, from the vertex through the skull base, without c ontrast. FINDINGS: The imaged paranasal sinuses and mastoid air cells are well aerated. There is no displaced calvarial fracture. There is evidence of a prior suboccipital craniotomy, stable. There is stable encephalom alacia involving the medial aspect of the bilateral cerebral hemispheres. There is periventricular h ypodensity suggesting a degree of stable small vessel disease. There is no intracranial hemorrhage, midline shift, or mass effect. IMPRESSION: Stable head CT. No acute findings. POS: [facility]
== END 2018-02-04 02:27 | disposition home or self-care (01) ==
LOC: ERS 22:16
DX: S01.81XA Laceration without foreign body of other part of head, initial encounter (principal); I10 Essential (primary) hypertension; F17.210 Nicotine dependence, cigarettes, uncomplicated; Z86.73 Personal history of transient ischemic attack (TIA), and cerebral infarction without residual deficits; Z79.899 Other long term (current) drug therapy; W06.XXXA Fall from bed, initial encounter
CPT/HCPCS: 12051; 70450; J2001

== ENCOUNTER 2018-04-22 13:34 | Emergency (ER) | payer MEDICARE ==
[2018-04-22] MEDS ORDERED: Haloperidol Lactate 5 MG/ML VIAL ONE (14:39)
[2018-04-22 16:10] LABS: #Lymphocytes 1.7 thou/uL (1.20-3.40); #Monocytes 0.4 thou/uL (0.11-0.59); #Neutrophils 3.8 thou/uL (1.40-6.50); %Basophils 0.6 % (0.0-1.0); %Eosinophils 0.7 % (0.0-10.0); %Lymphocytes 28.8 % (21.0-51.0); %Monocytes 7.1 % (0.0-10.0); %Neutrophils 62.8 % (42.0-75.0); Hemoglobin 12.9 g/dL (12.0-16.0); Mean Corpuscular HGB CONC 33.7 g/dL (32.0-36.0); Mean Corpuscular Hemoglobin 31.9 pg (27.0-31.0); Mean Corpuscular Volume 94.6 fL (78.0-98.0); Platelet Count 235 thou/uL (130-400); RBC Distribution Width 11.8 % (11.5-14.5); Red Blood Cell (RBC) Count 4.05 mill/uL (4.20-5.40)
[2018-04-22 16:18] LABS: ALT (SGPT) 13 U/L (8-55); AST (SGOT) 19 U/L (5-34); Albumin 4.3 g/dL (3.4-4.8); Alkaline Phosphatase 70 U/L (40-150); Anion Gap 11 mmol/L (10-20); BUN (Urea Nitrogen) 16 mg/dL (9.8-20.1); Bilirubin, Total 0.5 mg/dL (0.2-1.2); Calc. Creatinine Clearance 0 mL/min (70-130); Calcium 9.4 mg/dL (7.8-10.44); Carbon Dioxide 23 mmol/L (23-31); Chloride 108 mmol/L (98-107); Estimated GFR-MDRD 62; Globulin 2.9 g/dL (2.4-3.5); Glucose 96 mg/dL (80-115); Potassium 3.3 mmol/L (3.5-5.1); Protein, Total 7.2 g/dL (6.0-8.3); Sodium 139 mmol/L (136-145)
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
[2018-04-22 18:43] LABS: Bilirubin Negative (Negative); Blood, Urine Negative (Negative); Clarity CLEAR (Clear); Glucose, Urine (Dipstick) Negative (Negative); Leukocyte Negative (Negative); Nitrite Negative (Negative); Protein, Urine (Dipstick) Negative (Neg-Trace); Specific Gravity, Urine 1.014 (1.002-1.036); Urobilinogen 0.2 mg/dL (0.2-1.0)
== END 2018-04-22 19:28 | disposition home or self-care (01) ==
LOC: EEVIPCON 13:34 → ERS 13:34
DX: F03.90 Unspecified dementia, unspecified severity, without behavioral disturbance, psychotic disturbance, mood disturbance, and anxiety (principal); I10 Essential (primary) hypertension; F17.210 Nicotine dependence, cigarettes, uncomplicated; Z86.73 Personal history of transient ischemic attack (TIA), and cerebral infarction without residual deficits
CPT/HCPCS: 36415; 70450; 80053; 81003; 85025; 87086; 93005; 96372; J1630; J7620

== ENCOUNTER 2018-10-13 15:44 | Emergency (ER) | payer MEDICARE | END 2018-10-13 19:53 | disposition home or self-care (01) | LOC: ERS 15:44 | DX: F03.90 Unspecified dementia, unspecified severity, without behavioral disturbance, psychotic disturbance, mood disturbance, and anxiety (principal); I10 Essential (primary) hypertension; Z86.73 Personal history of transient ischemic attack (TIA), and cerebral infarction without residual deficits; F17.210 Nicotine dependence, cigarettes, uncomplicated | CPT/HCPCS: 99284 ==